=== PATIENT | male | born 1940 | race Two or more races ===

== ENCOUNTER 2024-01-21 12:24 | Emergency (ER) | payer OTHER ==
[~2024-01-21] VITALS: Ht 172.7 cm; Wt 61.9 kg
[2024-01-21 18:31] LABS: Basophils # (auto) 0 10 ^3/uL (0-0.2); Basophils % (auto) 0.3 % (0.0-2.0); Eosinophils # (auto) 0 10 ^3/uL (0-0.8); Eosinophils % (auto) 0.6 % (0.0-7.0); Hematocrit 41.5 % (41.0-53.0); Hemoglobin 13.9 g/dL (13.5-17.5); Lymphocytes # (auto) 1.2 10 ^3/uL (0.4-5.4); Lymphocytes % (auto) 18.7 % (10.0-50.0); Mean Corpuscular Hemoglobin 29.8 pg (28.0-32.0); Mean Corpuscular Hgb Conc. 33.6 g/dL (32.0-36.0); Mean Corpuscular Volume 88.7 fL (80.0-100.0); Monocytes # (auto) 0.5 10 ^3/uL (0-1.3); Monocytes % (auto) 8.2 % (0.0-12.0); Neutrophils # (auto) 4.8 10 ^3/uL (1.6-8.6); Neutrophils % (auto) 72.2 % (37.0-80.0); Nucleated Red Blood Cells % 0.2 %; Red Blood Cells 4.68 10^6/uL (4.5-5.90); Red Cell Distribution Width 13.5 % (11.8-14.3); White Blood Cell 6.6 10^3/uL (4.4-10.8)
[2024-01-21 18:43] LABS: Chloride 105 mmol/L (98-107); Potassium 3.7 mmol/L (3.5-5.1); Sodium 141 mmol/L (136-145)
[2024-01-21 18:44] LABS: Anion Gap 7 (5-15); Calcium 9.9 mg/dL (8.7-10.4); Carbon Dioxide 29 mmol/L (20-30)
[2024-01-21 18:49] LABS: BUN/Creatinine Ratio 21.8 (10.0-20.0); Blood Urea Nitrogen 17 mg/dL (9-23); Glucose 127 mg/dL (74-106); Magnesium 2.1 mg/dL (1.6-2.6)
[2024-01-21 20:18] LABS: Alanine Aminotransferase 20 U/L (7-40); Albumin 4.4 g/dL (3.2-4.8); Alkaline Phosphatase 101 U/L (46-116); Aspartate Aminotransferase 26 U/L (13-40); Bilirubin, Total 0.4 mg/dL (0.2-1.0); Total Protein 7.2 g/dL (5.7-8.2)
[2024-01-21 21:30] VITALS: BP 168/76; PULSE 70; RESP 18; TEMP 98; O2SAT 99
[2024-01-21] MEDS ORDERED: ACET500T58 PO (22:21)
== END 2024-01-21 22:40 | disposition home or self-care (01) ==
LOC: ER 12:24
DX: S20.212A Contusion of left front wall of thorax, initial encounter (principal); M54.2 Cervicalgia; W17.89XA Other fall from one level to another, initial encounter; Y93.89 Activity, other specified; Y92.89 Other specified places as the place of occurrence of the external cause; Y99.8 Other external cause status
CPT/HCPCS: 36415; 70450; 71046; 71101; 71250; 72125; 74176; 80053; 83735; 84484; 85025; 93005

== ENCOUNTER 2024-02-05 11:53 | Emergency (ER) | payer OTHER ==
[~2024-02-05] VITALS: Ht 170.2 cm; Wt 60.1 kg
[~2024-02-05 11:53] MED LIST: ACET500T58 PO
[2024-02-05] MEDS ORDERED: AMOX875T3 PO (13:13)
[2024-02-05] MEDS ORDERED: PROM1SOL4 PO (13:13)
[2024-02-05 13:29] VITALS: BP 131/62; PULSE 72; RESP 17; TEMP 98.5; O2SAT 99
== END 2024-02-05 13:31 | disposition home or self-care (01) ==
LOC: ER 11:53
DX: J01.00 Acute maxillary sinusitis, unspecified (principal)
CPT/HCPCS: 71046

== ENCOUNTER 2024-10-09 00:37 | Inpatient (IN) | payer MEDICAID, OTHER ==
[~2024-10-09] VITALS: Ht 172.7 cm; Wt 61.0 kg
[~2024-10-09 00:37] MED LIST changes: +AMOX875T3 PO; +LISI10TA34 PO; +PROM1SOL4 PO; +SIMV20TA20 PO; +TAMS0.4C39 PO
[2024-10-09] MEDS: ACETAMINOPHEN 325 MG TAB PO ONE (01:17)
--- NOTE | 2024-10-09 01:20 | ED.PDOC ---
SOB-HPI HPI Comments 84-year-old male who came to ER for shortness of breath. Patient states for the past few days he has been having productive cough with shortness of breath, especially during supine position. Noted also chest discomfort/pressure whenever he lays down. Patient also complaining of bilateral flank pains. Saturating 98% on room air. Patient denies any fever. Chief Complaint: Shortness of breath Time Seen by MD: 01:19 Reviewed notes: Nurses Notes Information Source: Patient Mode of Arrival: Ambulatory Severity: Moderate Timing: Days Duration: Intermittent Context: At Rest, With Light Exertion PE Risk Factors: None History of: None Prehospital treatment: None Associated Signs and Symptoms: Cough, Chest Pain Quality: Pressure Radiation: No Radiation If cough with SOB: Non-Productive Past Medical History PAST MEDICAL HISTORY: Denies Surgical History: Denies all surgeries Family History Family History: Reviewed,noncontributory to illness Social History Smoker: Non-Smoker Alcohol: Denies ETOH Use Drugs: Denies Drug Use Lives In: Home Constitutional: denies: chills, diaphoresis, fatigue, fever, malaise, sweats, weakness, others EENTM: denies: blurred vision, double vision, ear bleeding, ear discharge, ear drainage, ear pain, ear ringing, eye pain, eye redness, hearing loss, mouth pain, mouth swelling, nasal discharge, nose bleeding, nose congestion, nose lisha n, photophobia, tearing, throat pain, throat swelling, voice changes, others Respiratory: reports: orthopnea, SOB at rest, shortness of breath; denies: cough, hemoptysis, SOB with excertion, stridor, wheezing, others Cardiovascular: reports: chest pain, dizzy spells; denies: diaphoresis, Dyspnea on exertion, edema, irregular heart beat, left arm pain, lightheadedness, palpitations, PND, syncope, others Gastrointestinal: denies: abdomen distended, abdominal pain, blood streaked bowels, constipated, diarrhea, dysphagia, difficulty swallowing, hematemesis, melena, nausea, poor appetite, poor fluid intake, rectal bleeding, rectal pain, vomiting, others Genitourinary: reports: flank pain; denies: burning, dysuria, frequency, hematuria, incontinence, penile discharge, penile sore, pain, testicle pain, shanae ticle swelling, urgency, others Neurological: denies: dizziness, fainting, headache, left sided numbness, left sided weakness, numbness, paresthesia, pre-existing deficit, right sided numbness, right sided weakness, seizure, speech problems, tingling, tremors, weakness, others Musculoskeletal: denies: back pain, gout, joint pain, joint swelling, muscle pain, muscle stiffness, neck pain, others Integumetry: denies: bruises, change in color, change in hair/nails, dryness, laceration, lesions, lumps, rash, wounds, others Allergic/Immunocompromised: denies: Difficulty Healing, Frequent Infections, Hives, Itching, others Hematologic/Lymphatic: denies: anemia, blood clots, easy bleeding, easy bruising, swollen glands, others Endocrine: denies: excessive hunger, excessive sweating, excessive thirst, excessive urination, flushing, intolerance to cold, intolerance to heat, unexplained weight gain, unexplained weight loss, others Psychiatric: denies: anxiety, bipolar disorder, depression, hopeless, panic disorder, schizophrenia, sleepless, suicidal, others Physical Exam General Appearance: Moderate Distress ([id number] distress due to chest pain and flank pain concerns.), Normal HEENT: Normal ENT Inspection, Pharynx Normal, TMs Normal Neck: Full Range of Motion, Non-Tender, Normal, Normal Inspection Respiratory: Lungs Clear, No Accessory Muscle Use, No Respiratory Distress, Normal Breath Sounds Cardiovascular: No Edema, No JVD, No Murmur, No Gallop, Normal Peripheral Pulses, Regular Rate/Rhythm Breast Exam: Deferred Gastrointestinal: Other (Diffuse bilateral CVA tenderness to palpation with the right-sided greater than left. Patient states pain radiates towards the belly. No signs of trauma.) Genitalia: Deferred Pelvic: Deferred Rectal: Deferred Extremities: No calf tenderness, Normal inspection, Normal range of motion, Non-tender Musculoskeletal : Apperance: Normal Neurologic: Alert, Normal Affect, Normal Mood, No Sensory Deficits Cerebellar Function: NOT DONE Reflexes: NOT DONE Skin: Dry, Normal Color, Warm Lymphatic: No Adenopathy Was a procedure done? Was a procedure done?: No Differential Dx Differential Diagnosis: Anxiety, Asthma, Bronchitis, CHF, COPD, Myocardial infarction, Panic Attack, Pneumonia, Respiratory Distress X-Ray, Labs, Meds, VS Vital Signs Date Time Temp Pulse Resp B/P (MAP) Pulse Ox O2 Delivery O2 Flow Rate FiO2 10/09/24 03:04 98 10/09/24 01:37 97.7 98 16 129/72 (91) 98 Lab Test 10/09/24 02:21 10/09/24 01:18 Range/Units Troponin I High Sensitivity Pending 767 *H </=54 ng/L White Blood Count 5.3 4.4-10.8 10^3/uL Red Blood Count 4.19 L 4.5-5.90 10^6/uL Hemoglobin 13.0 L 13.5-17.5 g/dL Hematocrit 37.4 L 41.0-53.0 % Mean Corpuscular Volume 89.2 80.0-100.0 fL Mean Corpuscular Hemoglobin 31.0 28.0-32.0 pg Mean Corpuscular Hemoglobin Concent 34.8 32.0-36.0 g/dL Red Cell Distribution Width 13.7 11.8-14.3 % Platelet Count 145 140-450 10^3/uL Mean Platelet Volume 9.5 6.9-10.8 fL Neutrophils (%) (Auto) 64.8 37.0-80.0 % Lymphocytes (%) (Auto) 26.6 10.0-50.0 % Monocytes (%) (Auto) 7.3 0.0-12.0 % Eosinophils (%) (Auto) 1.0 0.0-7.0 % Basophils (%) (Auto) 0.3 0.0-2.0 % Neutrophils # (Auto) 3.4 1.6-8.6 10 ^3/uL Lymphocytes # (Auto) 1.4 0.4-5.4 10 ^3/uL Monocytes # (Auto) 0.4 0-1.3 10 ^3/uL Eosinophils # (Auto) 0.1 0-0.8 10 ^3/uL Basophils # (Auto) 0 0-0.2 10 ^3/uL Nucleated Red Blood Cells 0.1 % Sodium Level 134 L 136-145 mmol/L Potassium Level 4.4 3.5-5.1 mmol/L Chloride Level 101 98-107 mmol/L Carbon Dioxide Level 26 20-31 mmol/L Anion Gap 7 5-15 Blood Urea Nitrogen 19 9-23 mg/dL Creatinine 1.12 0.700-1.30 mg/dL Glomerular Filtration Rate Calc 65 >90 mL/min BUN/Creatinine Ratio 17.0 10.0-20.0 Serum Glucose 352 H 74-106 mg/dL Calcium Level 9.6 8.7-10.4 mg/dL Total Bilirubin 0.5 0.2-1.0 mg/dL Aspartate Amino Transferase (AST) 52 H 13-40 U/L Alanine Aminotransferase (ALT) 57 H 7-40 U/L Alkaline Phosphatase 122 H 46-116 U/L Total Protein 6.5 5.7-8.2 g/dL Albumin 4.2 3.2-4.8 g/dL X-Ray, Labs, Meds, VS Comment All studies performed in the ED were evaluated by me personally. Chest x-ray was pending at time of this note. EKG revealed a sinus rhythm with a rate of 98. [place] intraventricular conduction delay noted. TX interval 187 and QT interval of 338. No STEMI appreciated. Serum laboratories revealed a hyperglycemia, a significantly elevated troponin on 1st draw as well as a transaminitis. Patient will be admitted for acute coronary syndrome and receive a cardiac evaluation tomorrow. Additionally, patient's blood sugar will be managed well with the facility and patient may require a CT evaluation of the abdomen. Time of 1ST Reevaluation: 03:15 Reevaluation 1ST: Improved Consultation: PCP, Cardiology Patient Education/Counseling: Diagnosis, Treatment Family Education/Counseling: Diagnosis, Treatment, No Family Present Departure 1 Departure Time of Disposition: 03:16 Impression: Primary Impression: Acute coronary syndrome Additional Impressions: Elevated troponin Transaminitis Disposition: ADMITTED INPATIENT Condition: Stable Discharged With: Self Critical Care Note Critical Care Time?: No Stability Stability form required: No Heart Score Heart Score: Heart Score Response (Comments) Value History Slightly Suspicious 0 EKG Repolarization Disturb 1 Age >65 2 Risk Factors 1 or 2 risk factors 1 Troponin >3 x's Normal limit 2 Total 6 I personally scribed for SARAH LYNN PAC ([email or web address]) on 10/09/24 at 01:20. Electronically submitted by Juanpablo Pena ([email or web address]). I personally scribed for SARAH LYNN PAC ([email or web address]) on 10/09/24 at 02:03. Electronically submitted by Juanpablo Pena ([email or web address]). SARAH LYNN PAC Oct 09, 2024 01:20
[2024-10-09 01:45] LABS: Basophils # (auto) 0 10 ^3/uL (0-0.2); Basophils % (auto) 0.3 % (0.0-2.0); Eosinophils # (auto) 0.1 10 ^3/uL (0-0.8); Hematocrit 37.4 % (41.0-53.0); Lymphocytes # (auto) 1.4 10 ^3/uL (0.4-5.4); Lymphocytes % (auto) 26.6 % (10.0-50.0); Mean Corpuscular Hgb Conc. 34.8 g/dL (32.0-36.0); Mean Corpuscular Volume 89.2 fL (80.0-100.0); Monocytes # (auto) 0.4 10 ^3/uL (0-1.3); Monocytes % (auto) 7.3 % (0.0-12.0); Neutrophils # (auto) 3.4 10 ^3/uL (1.6-8.6); Neutrophils % (auto) 64.8 % (37.0-80.0); Nucleated Red Blood Cells % 0.1 %; Platelet Count (auto) 145 10^3/uL (140-450); Red Blood Cells 4.19 10^6/uL (4.5-5.90); Red Cell Distribution Width 13.7 % (11.8-14.3); White Blood Cell 5.3 10^3/uL (4.4-10.8)
[2024-10-09 02:02] LABS: Albumin 4.2 g/dL (3.2-4.8); Anion Gap 7 (5-15); Blood Urea Nitrogen 19 mg/dL (9-23); Calcium 9.6 mg/dL (8.7-10.4); Carbon Dioxide 26 mmol/L (20-31); Chloride 101 mmol/L (98-107); Potassium 4.4 mmol/L (3.5-5.1)
[2024-10-09 02:03] LABS: Bilirubin, Total 0.5 mg/dL (0.2-1.0); Total Protein 6.5 g/dL (5.7-8.2)
[2024-10-09 02:08] LABS: Alanine Aminotransferase 57 U/L (7-40); Alkaline Phosphatase 122 U/L (46-116); Aspartate Aminotransferase 52 U/L (13-40); Glucose 352 mg/dL (74-106); Sodium 134 mmol/L (136-145)
[2024-10-09 03:42] LABS: Urine Bacteria None Seen /hpf (None Seen)
[2024-10-09 03:56] LABS: Urine Blood Negative /uL (Negative); Urine Clarity Clear (Clear); Urine Color Light-Yellow (Yellow); Urine Protein, UAD TRACE (Negative); Urine Specific Gravity 1.028 (1.001-1.035); Urine Urobilinogen Normal (Negative); Urine pH 5.5 (5.0-9.0)
[2024-10-09 03:57] LABS: Urine Squamous Epithelial Cell None Seen /hpf (<5); Urine WBC < 1 /HPF (0-3)
--- NOTE | 2024-10-09 04:04 | DVH ---
Examination: CXRP CLINICAL INDICATION: Shortness of breath. COMPARISON: None. TECHNIQUE: Frontal view of chest radiograph FINDINGS: Prominence of bentley and interstitial markings is seen in both lungs, showing basal predominance. Patchy areas of consolidation are seen in the right paracardiac lower zone. Rest of the lung parenchyma is clear. Hilar and mediastinal shadows show no obvious abnormality. Costophrenic angles clear. Aorta is noted. Calcification of aortic knob is present. Cardiac shadow size is within normal limits. IMPRESSION: 1. Prominence of bentley and interstitial markings is seen in both lungs, showing basal predominance. T his is probably suggestive of interstitial pulmonary edema. 2. Patchy areas of consolidation are seen in the right paracardiac lower zone. Electronically Signed 10/09/2024 04:02 Austin Gibbs
[2024-10-09] MEDS: SODIUM CHLORIDE 0.9% 1,000 ML IV ONE (04:27)
[2024-10-09] MEDS: INSULIN LISPRO (HUMAN) 100 UNITS/ML ML SC ONE (04:44)
[2024-10-09] MEDS ORDERED: ACETAMINOPHEN 325 MG TAB PO PRN (07:00)
[2024-10-09] MEDS ORDERED: MORPHINE SULFATE INJ 2 MG/ml SYRG IV PRN (07:00)
[2024-10-09] MEDS ORDERED: DEXTROSE (50%) 50ML SYRG IV PRN (07:00)
[2024-10-09] MEDS ORDERED: MORPHINE SULFATE 4 MG/ML SYR/VIAL IV PRN (07:00)
[2024-10-09] MEDS ORDERED: ONDANSETRON HCL 4 MG/2 ML VIAL IV PRN (07:00)
[2024-10-09] MEDS ORDERED: NITROGLYCERIN 0.4 MG SL TAB SL PRN ×2 (07:00)
--- NOTE | 2024-10-09 07:26 | DVHHP2 ---
History of Present Illness Reason for Visit: SOB History of Present Illness Jonathan Campos is an 84-year-old male with past medical history of hypertension, diabetes, and appendectomy who presents to the ED for SOB, cough, and bilateral flank pain x1 day. Patient reports that he is not taking any current medications nor does he see a research assistant. Patient stated that he had some chest pain but not currently upon examination. Denies any recent illnesses, recent sick contacts, recent travels, abdominal pain, nausea, vomiting, diarrhea, fever, chills, lightheadedness, and dizziness. Cardiovascular: HTN Endocrine: Diabetes Past Surgical History: Appendectomy Family History: Other (Both ) Smoke: No ALCOHOL: none Drugs: None Lives: Alone Domestic Violence: Neg Review of Systems Constitutional: No: Fever, Chills, Sweats, Weakness, Malaise, Other Eyes: No: Pain, Vision change, Conjunctivae inflammation, Eyelid inflammation, Other, Redness ENT: No: Ear pain, Ear discharge, Nose pain, Nose discharge, Nose congestion, Mouth pain, Mouth swelling, Throat pain, Throat swelling, Other Respiratory: Cough, Shortness of breath; No: Dry, SOB with excertion, Wheezing, Hemoptysis, Pleuritic Pain, Sputum, Wheezing, Other Cardiovascular: No: Chest Pain, Palpitations, Orthopnea, Paroxysmal Noc. Dyspnea, Edema, Lt Headedness, Other Gastrointestinal: Other (Bilateral flank pain); No: Nausea, Vomiting, Abdominal Pain, Diarrhea, Constipation, Melena, Hematochezia Genitourinary: No Dysuria, No Frequency, No Incontinence, No Hematuria, No Retention, No Other Musculoskeletal: No: other, neck pain, shoulder pain, arm pain, back pain, hand pain, leg pain, foot pain Skin: No: Rash, Lesions, Jaundice, Bruising, Other Neurological: No: Weakness, Numbness, Incoordination, Change in speech, Confusion, Seizures, Other Allergies: Coded Allergies: NO KNOWN ALLERGIES (Unverified , 01/21/24) Medications Current Medications Medications Dose Ordered Sig/[place] Route Start Time Stop Time Status Last Admin Dose Admin Furosemide 40 mg BIDD IV 10/09/24 18:00 UNV Diagnostic Test (Pha) 1 strip ACHS 10/09/24 07:00 UNV Insulin Human Regular ACHS SC 10/09/24 07:00 UNV Dextrose 50 ml UD PRN IV 10/09/24 07:00 UNV Aspirin 81 mg DAILY PO 10/09/24 10:00 UNV Atorvastatin Calcium 40 mg HS PO 10/09/24 22:00 UNV Morphine Sulfate 2 mg Q30MP PRN IV 10/09/24 07:00 UNV Acetaminophen 650 mg Q6HP PRN PO 10/09/24 07:00 UNV Nitroglycerin 0.4 mg Q5MINP PRN SL 10/09/24 07:00 UNV Ondansetron HCl 4 mg Q4HP PRN IV 10/09/24 07:00 UNV Nitroglycerin 0.4 mg Q5MINP PRN SL 10/09/24 07:00 UNV Morphine Sulfate 2 mg Q30M PRN IV 10/09/24 07:00 UNV Exam Vital Signs Vital Signs Date Time Temp Pulse Resp B/P (MAP) Pulse Ox O2 Delivery O2 Flow Rate FiO2 10/09/24 06:01 97.9 94 129/65 (86) 100 97.9 10/09/24 01:37 16 General Appearance: Alert, Oriented X3, Cooperative, No acute distress HEENT: Atraumatic, PERRLA, EOMI, Mucous membr. moist/pink Respiratory: Normal air movement Cardiovascular: Regular rate, Normal S1, Normal S2, No murmurs Abdominal: Normal bowel sounds, Soft Extremities: No clubbing, No cyanosis, No edema, Normal pulses, No tenderness/swelling Skin: No rashes, No breakdown, No significant lesion Neuro: Normal gait, Normal speech, Strength at 5/5 X4 ext, Normal tone, Sensation intact Psych/Mental Status: Mental status NL, Mood NL Labs/Xrays Labs Test 10/09/24 04:00 10/09/24 03:41 10/09/24 01:18 Range/Units Troponin I High Sensitivity 735 *H </=54 ng/L Urine Color Light-yellow Yellow Urine Clarity Clear Clear Urine pH 5.5 5.0-9.0 Urine Specific [place] 1.028 1.001-1.035 Urine Protein Trace H Negative Urine Ketones Trace Negative Urine Blood Negative Negative /uL Urine Nitrite Negative Negative Urine Bilirubin Negative Negative Urine Urobilinogen Normal Negative mg/dL Urine Leukocyte Esterase Negative Negative /uL Urine RBC <1 0 - 3 /hpf Urine Microscopic WBC < 1 0-3 /HPF Urine Squamous Epithelial Cells None seen <5 /hpf Urine Bacteria None seen None Seen /hpf Urine Glucose 4+ H Normal mg/dL White Blood Count 5.3 4.4-10.8 10^3/uL Red Blood Count 4.19 L 4.5-5.90 10^6/uL Hemoglobin 13.0 L 13.5-17.5 g/dL Hematocrit 37.4 L 41.0-53.0 % Mean Corpuscular Volume 89.2 80.0-100.0 fL Mean Corpuscular Hemoglobin 31.0 28.0-32.0 pg Mean Corpuscular Hemoglobin Concent 34.8 32.0-36.0 g/dL Red Cell Distribution Width 13.7 11.8-14.3 % Platelet Count 145 140-450 10^3/uL Mean Platelet Volume 9.5 6.9-10.8 fL Neutrophils (%) (Auto) 64.8 37.0-80.0 % Lymphocytes (%) (Auto) 26.6 10.0-50.0 % Monocytes (%) (Auto) 7.3 0.0-12.0 % Eosinophils (%) (Auto) 1.0 0.0-7.0 % Basophils (%) (Auto) 0.3 0.0-2.0 % Neutrophils # (Auto) 3.4 1.6-8.6 10 ^3/uL Lymphocytes # (Auto) 1.4 0.4-5.4 10 ^3/uL Monocytes # (Auto) 0.4 0-1.3 10 ^3/uL Eosinophils # (Auto) 0.1 0-0.8 10 ^3/uL Basophils # (Auto) 0 0-0.2 10 ^3/uL Nucleated Red Blood Cells 0.1 % Sodium Level 134 L 136-145 mmol/L Potassium Level 4.4 3.5-5.1 mmol/L Chloride Level 101 98-107 mmol/L Carbon Dioxide Level 26 20-31 mmol/L Anion Gap 7 5-15 Blood Urea Nitrogen 19 9-23 mg/dL Creatinine 1.12 0.700-1.30 mg/dL Glomerular Filtration Rate Calc 65 >90 mL/min BUN/Creatinine Ratio 17.0 10.0-20.0 Serum Glucose 352 H 74-106 mg/dL Calcium Level 9.6 8.7-10.4 mg/dL Total Bilirubin 0.5 0.2-1.0 mg/dL Aspartate Amino Transferase (AST) 52 H 13-40 U/L Alanine Aminotransferase (ALT) 57 H 7-40 U/L Alkaline Phosphatase 122 H 46-116 U/L B-Type Natriuretic Peptide 810.87 0-100 pg/mL Total Protein 6.5 5.7-8.2 g/dL Albumin 4.2 3.2-4.8 g/dL Examination: CXRP CLINICAL INDICATION: Shortness of breath. COMPARISON: None. TECHNIQUE: Frontal view of chest radiograph FINDINGS: Prominence of bentley and interstitial markings is seen in both lungs, showing basal predominance. Patchy areas of consolidation are seen in the right paracardiac lower zone. Rest of the lung parenchyma is clear. Hilar and mediastinal shadows show no obvious abnormality. Costophrenic angles clear. Aorta is noted. Calcification of aortic knob is present. Cardiac shadow size is within normal limits. IMPRESSION: 1. Prominence of bentley and interstitial markings is seen in both lungs, showing basal predominance. This is probably suggestive of interstitial pulmonary edema. 2. Patchy areas of consolidation are seen in the right paracardiac lower zone. Assessment/Plan Assessment/Plan Assessment/Plan: Dyspnea Pulmonary edema Transaminitis Glucosuria Hyponatremia Thrombocytopenia Diuretics Elevated troponins Insulin given ED NS 1 L given ED Antipyretics BNP noted Chest x-ray UA EKG Trend troponins Echo ordered TSH Lipid panel UDS ACS protocol Cardiology consult GI consult A.m. labs Antiemetics Pain management Diabetes type 2 uncontrolled Hemoglobin A1c ISS and Accu-Cheks Chronic hypertension Continue home medications FEN/PPX Diet Hep-Lock DVT prophylaxis not indicated patient ambulating PUD prophylaxis not indicated no history of GERD or GI bleed Admit to telemetry Home medications reconciled Discussed plan of care with patient and nurse Plan discussed with: Patient My Orders Orders - DANIAL MORAN INSE[employer] INSPECTOR Procedure Category Date Status Time Furosemide Injection PHA 10/09/24 Logged (Lasix Injection) 18:00 Echo 2d Mode Cardiac US 10/09/24 Logged DOP 06:51 Thyroid Stimulating LAB 10/09/24 Logged Hormone 06:51 Lipid Panel LAB 10/09/24 Logged 06:51 Drug Screen LAB 10/09/24 Logged 06:51 Glucose Blood PHA 10/09/24 Logged (Accu-Chek Comfort 07:00 Insulin R (Human) PHA 10/09/24 Logged (Insulin R) 07:00 Dextrose 50% Syringe PHA 10/09/24 Logged 07:00 Admit ADMIT 10/09/24 Transmitted 06:51 Code Status CODE 10/09/24 Transmitted 06:51 Vital Signs ERI 10/09/24 In Process 06:51 Attendant Lodging Facilities ERI 10/09/24 In Process 06:51 Cardiac DIET 10/09/24 Transmitted Diet-2gna,Lofat,Lochol Breakfast Aspirin Tablet PHA 10/09/24 Transmitted 10:00 Lipitor 40mg Hs PHA 10/09/24 Transmitted Hi-Intensity 22:00 Morphine Sulfate PHA 10/09/24 Transmitted Injection 07:00 Acetaminophen Tablet PHA 10/09/24 Transmitted (Tylenol Tablet) 07:00 Complete Blood Count LAB 10/10/24 Verified 04:00 Comprehensive LAB 10/10/24 Verified Metabolic Panel 04:00 Magnesium LAB 10/10/24 Verified 04:00 Nitroglycerin PHA 10/09/24 Transmitted Sublingual (Ntrostat 07:00 Ondansetron Hcl PHA 10/09/24 Transmitted (Zofran) 07:00 Electrocardigram EKG 10/10/24 Logged 04:00 Troponin-I Hs LAB 10/09/24 Logged 06:51 Cardiac ERI 10/09/24 In Process Rehabilitation - Outpa Nitroglycerin PHA 10/09/24 Transmitted Sublingual (Ntrostat 07:00 Morphine Sulfate PHA 10/09/24 Transmitted Injection 07:00 Stat Ekg For Chest ERI 10/09/24 In Process Pain 06:51 Notify Of Changes [facility] 10/09/24 In Process From Base 06:51 Housekeeper And Laundry Assistant For ERI 10/09/24 In Process 24 Hours 06:51 Emergency Dysrhythmia ERI 10/09/24 In Process Protocol 06:51 Rhythm Strips Once ERI 10/09/24 In Process Every Shift 06:51 Oxygen By Nasal RT 10/09/24 Transmitted Cannula 06:51 Hemoglobin A1c LAB 10/09/24 Transmitted 07:22 Date of Service: Oct 09, 2024 Billing Provider: DANIAL MORAN Common Visit Codes: [id number] INP/OBS CARE (HIGH) DANIAL MORAN Oct 09, 2024 07:26
[2024-10-09 08:03] LABS: Triglycerides 79 mg/dL (< 150)
[2024-10-09 08:04] LABS: LDL Cholesterol 51 mg/dL (< 100)
[2024-10-09 08:05] LABS: Cholesterol 126 mg/dL (< 200)
[2024-10-09 08:08] LABS: HDL Cholesterol 61 mg/dL (40-59)
[2024-10-09 08:14] LABS: Phencyclidine Screen, Urine Neg (NEGATIVE)
[2024-10-09 08:16] LABS: Amphetamine Screen, Urine Neg (NEGATIVE); Barbiturate Scree,Urine Neg (NEGATIVE); Benzodiazephine Screen, Urine Neg (NEGATIVE); Cannabinoid Screen, Urine Neg (NEGATIVE); Cocaine Screen, Urine Neg (NEGATIVE); Opiate Scree,Urine Neg (NEGATIVE)
[2024-10-09] MEDS: ACCU-CHEK COMFORT CURVE STRIP VI SCH (08:22)
[2024-10-09] MEDS: InsuLIN REG 1unit/0.01ml Soln (100units/ml) SC SCH (08:26)
[2024-10-09] MEDS: ASPirin 81 mg TAB PO SCH (10:21)
--- NOTE | 2024-10-09 12:20 | DVHINCON2 ---
Date Seen: Oct 09, 2024 Referring Physician Lillian Reason for Consultation NSTEMI History of Present Illness 84-year-old male with PMH for diabetes and HTN presents to the hospital with shortness of breath. Patient has been having shortness of breath worsens with exertion for the last week. Denies any chest pain, palpitations, diaphoresis. Upon evaluation in the ER patient noted to have CXR showing patchy area of co nsolidation in the right suggestive of pneumonia versus pulmonary edema. BNP 810. Troponins trending 767, 775, 735. Blood glucose 352, A1c 9.7. EKG reviewed and shows normal sinus rhythm at 90 beats per minute, lateral ST abnormality. Past Medical History Diabetes HTN Past Surgical History Denies previous cardiac surgeries Family History Denies pertinent family cardiac history Social History Denies alcohol, tobacco, or illicit drug use Allergies: Coded Allergies: NO KNOWN ALLERGIES (Unverified , 01/21/24) Home Meds Active Scripts Promethazine-Dm (Promethazine Dm 6.25-15 mg/5Ml) 1 Anneliese Anneliese, 5 ML PO TID, #180 ML Prov:JOLANTA ALBARRAN 02/05/24 Amoxicillin Trihydrate (Amoxicillin) 875 Mg Tab, 1 TAB PO BID, #20 TAB Prov:JOLANTA ALBARRAN 02/05/24 Acetaminophen (Acetaminophen) 500 Mg Tab, 500 MG PO QIDPRN for 10 Days, #40 TAB Prov:MELINA FORTE DO 01/21/24 Reported Medications Simvastatin (Simvastatin) 20 Mg Tab, 1 TAB PO 10/09/24 Insulin Isophane & Reg (Human) (Humulin 70/30 (70-30) 100 Unit/ml) 1 Units/0.01 Ml Inj, 15 UNITS SC BID, INJ 10/09/24 Current Medications Current Medications Medications (Trade) Dose Ordered Sig/Rosa Route PRN Reason Start Time Stop Time Status Last Admin Furosemide (Lasix Injection) 40 mg BIDD IV 10/09/24 18:00 Diagnostic Test (Pha) (Accu-Chek Comfort Curve T) 1 strip ACHS 10/09/24 07:00 10/09/24 08:22 Insulin Human Regular (InsuLIN R) ACHS SC 10/09/24 07:00 10/09/24 08:26 Dextrose 50 ml UD PRN IV Blood Sugar LESS THAN 60 10/09/24 07:00 Aspirin 81 mg DAILY PO 10/09/24 10:00 10/09/24 10:21 Atorvastatin Calcium (Lipitor) 40 mg HS PO 10/09/24 22:00 Morphine Sulfate 2 mg Q30MP PRN IV FOR CHEST PAIN 10/09/24 07:00 Acetaminophen (Tylenol Tablet) 650 mg Q6HP PRN PO MILD PAIN (1-3 PAIN SCALE) 10/09/24 07:00 Nitroglycerin (Ntrostat Sublingual) 0.4 mg Q5MINP PRN SL FOR CHEST PAIN 10/09/24 07:00 Ondansetron HCl (Zofran) 4 mg Q4HP PRN IV NAUSEA / VOMITING 10/09/24 07:00 Nitroglycerin (Ntrostat Sublingual) 0.4 mg Q5MINP PRN SL FOR CHEST PAIN 10/09/24 07:00 10/09/24 07:28 DC Morphine Sulfate 2 mg Q30M PRN IV FOR CHEST PAIN 10/09/24 07:00 10/09/24 07:28 DC Review of Systems Constitutional: No: Fever, Chills, Sweats, Weakness, Malaise, Other Eyes: No: Pain, Vision change, Conjunctivae inflammation, Eyelid inflammation, Other, Redness ENT: No: Ear pain, Ear discharge, Nose pain, Nose discharge, Nose congestion, Mouth pain, Mouth swelling, Throat pain, Throat swelling, Other Respiratory: No: Cough, Dry, , Wheezing, Hemoptysis, Pleuritic Pain, Sputum, Wheezing, Other positive: Shortness of breath, SOB with exertion Cardiovascular: ; No: Chest Pain Palpitations, Orthopnea, Paroxysmal Noc. Dyspnea, Edema, Lt Headedness, Other Gastrointestinal: No: Nausea, Vomiting, Abdominal Pain, Diarrhea, Constipation, Melena, Hematochezia, Other Genitourinary: No Dysuria, No Frequency, No Incontinence, No Hematuria, No Retention, No Other Musculoskeletal: neck pain; No: other, shoulder pain, arm pain, back pain, hand pain, leg pain, foot pain Skin: No: Rash, Lesions, Jaundice, Bruising, Other Neurological: Other (Dizziness, headache.); No: Weakness, Numbness, Incoordination, Change in speech, Confusion, Seizures Vital Signs Vital Signs Date Time Temp Pulse Resp B/P (MAP) Pulse Ox O2 Delivery O2 Flow Rate FiO2 10/09/24 10:27 98.1 89 16 133/69 (90) 98 98.1 10/09/24 08:27 Room Air Physical Exam General appearance: Patient is well-developed, well-nourished, in no acute distress. HEENT: Exam shows: Normocephalic, atraumatic, PERRLA, EOMI Neck: Supple, no bruits Chest: Equal chest excursion bilaterally. Breath sounds crackles/diminished. Heart: Rhythm: Regular rate; no murmur or gallop Abdomen: Exam shows: Soft, nontender, nondistended Musculoskeletal: No clubbing, no cyanosis, no lower extremity edema Dermatology: Skin warm, moist. Neurological: Exam shows: Alert and oriented x4, normal speech Available prior records, labs, EKG, rhythm strips reviewed and interpreted Labs/Diagnostic Data Labs Test 10/09/24 04:00 10/09/24 03:41 10/09/24 02:21 10/09/24 01:18 Range/Units Troponin I High Sensitivity 735 *H </=54 ng/L Triglycerides Level 79 < 150 mg/dL Cholesterol Level 126 < 200 mg/dL LDL Cholesterol 51 < 100 mg/dL HDL Cholesterol 61 H 40-59 mg/dL Urine Color Light-yellow Yellow Urine Clarity Clear Clear Urine pH 5.5 5.0-9.0 Urine Specific [place] 1.028 1.001-1.035 Urine Protein Trace H Negative Urine Ketones Trace Negative Urine Blood Negative Negative /uL Urine Nitrite Negative Negative Urine Bilirubin Negative Negative Urine Urobilinogen Normal Negative mg/dL Urine Leukocyte Esterase Negative Negative /uL Urine RBC <1 0 - 3 /hpf Urine Microscopic WBC < 1 0-3 /HPF Urine Squamous Epithelial Cells None seen <5 /hpf Urine Bacteria None seen None Seen /hpf Urine Glucose 4+ H Normal mg/dL Urine Opiates Screen Neg NEGATIVE Urine Fentanyl Screen Neg NEGATIVE Urine Barbiturates Screen Neg NEGATIVE Urine Phencyclidine Screen Neg NEGATIVE Urine Amphetamines Screen Neg NEGATIVE Urine Benzodiazepines Screen Neg NEGATIVE Urine Cocaine Screen Neg NEGATIVE Urine Cannabinoids Screen Neg NEGATIVE Thyroid Stimulating Hormone (TSH) 1.49 0.55-4.78 uIU/mL White Blood Count 5.3 4.4-10.8 10^3/uL Red Blood Count 4.19 L 4.5-5.90 10^6/uL Hemoglobin 13.0 L 13.5-17.5 g/dL Hematocrit 37.4 L 41.0-53.0 % Mean Corpuscular Volume 89.2 80.0-100.0 fL Mean Corpuscular Hemoglobin 31.0 28.0-32.0 pg Mean Corpuscular Hemoglobin Concent 34.8 32.0-36.0 g/dL Red Cell Distribution Width 13.7 11.8-14.3 % Platelet Count 145 140-450 10^3/uL Mean Platelet Volume 9.5 6.9-10.8 fL Neutrophils (%) (Auto) 64.8 37.0-80.0 % Lymphocytes (%) (Auto) 26.6 10.0-50.0 % Monocytes (%) (Auto) 7.3 0.0-12.0 % Eosinophils (%) (Auto) 1.0 0.0-7.0 % Basophils (%) (Auto) 0.3 0.0-2.0 % Neutrophils # (Auto) 3.4 1.6-8.6 10 ^3/uL Lymphocytes # (Auto) 1.4 0.4-5.4 10 ^3/uL Monocytes # (Auto) 0.4 0-1.3 10 ^3/uL Eosinophils # (Auto) 0.1 0-0.8 10 ^3/uL Basophils # (Auto) 0 0-0.2 10 ^3/uL Nucleated Red Blood Cells 0.1 % Sodium Level 134 L 136-145 mmol/L Potassium Level 4.4 3.5-5.1 mmol/L Chloride Level 101 98-107 mmol/L Carbon Dioxide Level 26 20-31 mmol/L Anion Gap 7 5-15 Blood Urea Nitrogen 19 9-23 mg/dL Creatinine 1.12 0.700-1.30 mg/dL Glomerular Filtration Rate Calc 65 >90 mL/min BUN/Creatinine Ratio 17.0 10.0-20.0 Serum Glucose 352 H 74-106 mg/dL Hemoglobin A1c 9.7 H <5.7 % A1C Calcium Level 9.6 8.7-10.4 mg/dL Total Bilirubin 0.5 0.2-1.0 mg/dL Aspartate Amino Transferase (AST) 52 H 13-40 U/L Alanine Aminotransferase (ALT) 57 H 7-40 U/L Alkaline Phosphatase 122 H 46-116 U/L B-Type Natriuretic Peptide 810.87 0-100 pg/mL Total Protein 6.5 5.7-8.2 g/dL Albumin 4.2 3.2-4.8 g/dL Assessment NSTEMI Acute CHF Pneumonia HTN Uncontrolled diabetes Plan/Recommendation * NSTEMI - likely type 2. Denies chest pain. EKG with lateral ST abnormalities. Follow up echo. Continue on aspirin and statin. Plan for coronary angiogram Friday10/11/2024. * Acute CHF - elevated BNP. CXR with pulmonary edema. Diuresis with Lasix 40 mg IV twice daily. * Uncontrolled diabetes - A1c 9.7. On insulin sliding scale. Management per primary team. * HTN - continue trending Case Discussed with Dr Valero. Continue aspirin and statin. Patient will need ischemic workup stress test versus angiogram. Follow up echo. Critical care, time spent: 40 minutes This medical document was created using an electronic medical record system with voice recognition software and computerized dictation system. Although this document has been carefully reviewed, there might still be some phonetic and typographical errors. Occasional wrong-word or ``sound-alike substitutions may have occurred due to the inherent limitations of voice recognition software. These areas are purely typographical due to imperfections of the software programs and do not reflect any compromise in the patient's medical care. Please read the chart carefully and recognize, using context, where these substitutions have occurred. Thank you for allowing me to participate in the management of this patient. The treatment plan was discussed with and agreed upon by patient/family including requesting consultants and ordering of imaging/procedures. Plan discussed with: Patient NYHA 2 Physical activity limitations: Class3(Marked) ordinary Date of Service: Oct 09, 2024 Billing Provider: DUSTIN FLANAGAN Cardiology Common Codes: [id number] INP/OBS CARE (High), [id number] CARE 30-74 MIN DUSTIN FLANAGAN Oct 09, 2024 12:20
[2024-10-09 12:23] VITALS: PULSE 71; RESP 20; O2SAT 95
[2024-10-09 13:24] VITALS: PULSE 88; RESP 18; O2SAT 96
[2024-10-09] MEDS ORDERED: INS7030I SC (13:59)
[2024-10-09 14:07] VITALS: BP 136/85; PULSE 88; RESP 16; TEMP 97.9; O2SAT 96
--- NOTE | 2024-10-09 14:53 | DVH ---
INDICATION: TRANSMINITIS TECHNIQUE: Multiple real-time sonographic images of the abdomen were obtained. COMPARISON: None FINDINGS: Hepatic parenchyma is slightly echogenic The liver measures 2.9 cm in length cm. No intrah epatic biliary ductal dilatation is noted. The gallbladder wall measures 0.15 cm and is unremarkable. No gallstones or sludge is seen. The co mmon duct visible The right kidney measures 10.2 cm. No hydronephrosis. The pancreas is not well visualized due to obscuration from bowel gas. The visualized portions of the IVC and aorta are grossly unremarkable. IMPRESSION: 1. Gallbladder is negative 2. Liver measures 12.9 cm. 3. Bilateral pleural effusions.
--- NOTE | 2024-10-09 16:01 | DVHCONRES ---
Date Seen: Oct 09, 2024 Resident Creating Document: WERNER DELGADO RESIDENT History of Present Illness 84-year-old Fijian speaking male patient with PMH HX of hypertension presented to the ER with a chief complaint of shortness of breath and lower extremity edema. GI was consulted for transaminitis, patient denies nausea/vomiting/abdominal pain/constipation/diarrhea at this time. Patient seen and examined at the bedside. Exam is unremarkable, liver enzymes could be cardiac in origin. Family History: Diabetes mellitus G8 MOTHER Allergies: Coded Allergies: NO KNOWN ALLERGIES (Unverified , 01/21/24) Home Meds Active Scripts Promethazine-Dm (Promethazine Dm 6.25-15 mg/5Ml) 1 Anneliese Anneliese, 5 ML PO TID, #180 ML Prov:JOLANTA ALBARRAN 02/05/24 Amoxicillin Trihydrate (Amoxicillin) 875 Mg Tab, 1 TAB PO BID, #20 TAB Prov:JOLANTA ALBARRAN 02/05/24 Acetaminophen (Acetaminophen) 500 Mg Tab, 500 MG PO QIDPRN for 10 Days, #40 TAB Prov:MELINA FORTE DO 01/21/24 Reported Medications Simvastatin (Simvastatin) 20 Mg Tab, 1 TAB PO 10/09/24 Insulin Isophane & Reg (Human) (Humulin 70/30 (70-30) 100 Unit/ml) 1 Units/0.01 Ml Inj, 15 UNITS SC BID, INJ 10/09/24 Current Medications Current Medications Medications (Trade) Dose Ordered Sig/Rosa Route PRN Reason Start Time Stop Time Status Last Admin Furosemide (Lasix Injection) 40 mg BIDD IV 10/09/24 18:00 Diagnostic Test (Pha) (Accu-Chek Comfort Curve T) 1 strip ACHS 10/09/24 07:00 10/09/24 12:26 Insulin Human Regular (InsuLIN R) ACHS SC 10/09/24 07:00 10/09/24 08:26 Dextrose 50 ml UD PRN IV Blood Sugar LESS THAN 60 10/09/24 07:00 Aspirin 81 mg DAILY PO 10/09/24 10:00 10/09/24 10:21 Atorvastatin Calcium (Lipitor) 40 mg HS PO 10/09/24 22:00 Morphine Sulfate 2 mg Q30MP PRN IV FOR CHEST PAIN 10/09/24 07:00 Acetaminophen (Tylenol Tablet) 650 mg Q6HP PRN PO MILD PAIN (1-3 PAIN SCALE) 10/09/24 07:00 Nitroglycerin (Ntrostat Sublingual) 0.4 mg Q5MINP PRN SL FOR CHEST PAIN 10/09/24 07:00 Ondansetron HCl (Zofran) 4 mg Q4HP PRN IV NAUSEA / VOMITING 10/09/24 07:00 Nitroglycerin (Ntrostat Sublingual) 0.4 mg Q5MINP PRN SL FOR CHEST PAIN 10/09/24 07:00 10/09/24 07:28 DC Morphine Sulfate 2 mg Q30M PRN IV FOR CHEST PAIN 10/09/24 07:00 10/09/24 07:28 DC Vital Signs Vital Signs Date Time Temp Pulse Resp B/P (MAP) Pulse Ox O2 Delivery O2 Flow Rate FiO2 10/09/24 14:07 97.9 88 16 136/85 (102) 96 97.9 10/09/24 13:24 Room Air* 0 21 Physical Exam Patient lying in bed, in no acute distress General: Well-built, afebrile, palor, mucosae are moist Cardiovascular: Regular S1 and S2. No murmurs, gallops or rubs. No JVD elevation. No pedal edema Respiratory: Normal B/L air entry on room air. Clear lung sounds on auscultation Abdomen: Soft, nontender, nondistended, normoactive bowel sounds, no rebound tenderness, no organomegaly, no masses Genitourinary: Deferred MSK/skin: Mobilizes 4 limbs. Skin is dry and warm Neurological: No motor, no sensitive deficits, normal speech. Pupils are isocoric and reactive. Psych/Mental Status: A/Ox3 Labs/Diagnostic Data Labs Test 10/09/24 13:12 10/09/24 12:23 10/09/24 04:00 10/09/24 03:41 Range/Units Plasma/Serum Blood Alcohol < 3.0 <10 mg/dL POC Glucose 93 70-106 mg/dl Troponin I High Sensitivity 735 *H </=54 ng/L Triglycerides Level 79 < 150 mg/dL Cholesterol Level 126 < 200 mg/dL LDL Cholesterol 51 < 100 mg/dL HDL Cholesterol 61 H 40-59 mg/dL Urine Color Light-yellow Yellow Urine Clarity Clear Clear Urine pH 5.5 5.0-9.0 Urine Specific [place] 1.028 1.001-1.035 Urine Protein Trace H Negative Urine Ketones Trace Negative Urine Blood Negative Negative /uL Urine Nitrite Negative Negative Urine Bilirubin Negative Negative Urine Urobilinogen Normal Negative mg/dL Urine Leukocyte Esterase Negative Negative /uL Urine RBC <1 0 - 3 /hpf Urine Microscopic WBC < 1 0-3 /HPF Urine Squamous Epithelial Cells None seen <5 /hpf Urine Bacteria None seen None Seen /hpf Urine Glucose 4+ H Normal mg/dL Urine Opiates Screen Neg NEGATIVE Urine Fentanyl Screen Neg NEGATIVE Urine Barbiturates Screen Neg NEGATIVE Urine Phencyclidine Screen Neg NEGATIVE Urine Amphetamines Screen Neg NEGATIVE Urine Benzodiazepines Screen Neg NEGATIVE Urine Cocaine Screen Neg NEGATIVE Urine Cannabinoids Screen Neg NEGATIVE Test 10/09/24 02:21 10/09/24 01:18 Range/Units Thyroid Stimulating Hormone (TSH) 1.49 0.55-4.78 uIU/mL White Blood Count 5.3 4.4-10.8 10^3/uL Red Blood Count 4.19 L 4.5-5.90 10^6/uL Hemoglobin 13.0 L 13.5-17.5 g/dL Hematocrit 37.4 L 41.0-53.0 % Mean Corpuscular Volume 89.2 80.0-100.0 fL Mean Corpuscular Hemoglobin 31.0 28.0-32.0 pg Mean Corpuscular Hemoglobin Concent 34.8 32.0-36.0 g/dL Red Cell Distribution Width 13.7 11.8-14.3 % Platelet Count 145 140-450 10^3/uL Mean Platelet Volume 9.5 6.9-10.8 fL Neutrophils (%) (Auto) 64.8 37.0-80.0 % Lymphocytes (%) (Auto) 26.6 10.0-50.0 % Monocytes (%) (Auto) 7.3 0.0-12.0 % Eosinophils (%) (Auto) 1.0 0.0-7.0 % Basophils (%) (Auto) 0.3 0.0-2.0 % Neutrophils # (Auto) 3.4 1.6-8.6 10 ^3/uL Lymphocytes # (Auto) 1.4 0.4-5.4 10 ^3/uL Monocytes # (Auto) 0.4 0-1.3 10 ^3/uL Eosinophils # (Auto) 0.1 0-0.8 10 ^3/uL Basophils # (Auto) 0 0-0.2 10 ^3/uL Nucleated Red Blood Cells 0.1 % Sodium Level 134 L 136-145 mmol/L Potassium Level 4.4 3.5-5.1 mmol/L Chloride Level 101 98-107 mmol/L Carbon Dioxide Level 26 20-31 mmol/L Anion Gap 7 5-15 Blood Urea Nitrogen 19 9-23 mg/dL Creatinine 1.12 0.700-1.30 mg/dL Glomerular Filtration Rate Calc 65 >90 mL/min BUN/Creatinine Ratio 17.0 10.0-20.0 Serum Glucose 352 H 74-106 mg/dL Hemoglobin A1c 9.7 H <5.7 % A1C Calcium Level 9.6 8.7-10.4 mg/dL Total Bilirubin 0.5 0.2-1.0 mg/dL Aspartate Amino Transferase (AST) 52 H 13-40 U/L Alanine Aminotransferase (ALT) 57 H 7-40 U/L Alkaline Phosphatase 122 H 46-116 U/L B-Type Natriuretic Peptide 810.87 0-100 pg/mL Total Protein 6.5 5.7-8.2 g/dL Albumin 4.2 3.2-4.8 g/dL Assessment Shortness of breaths likely secondary to congestive heart failure Hyponatremia Elevated troponin Transaminitis Uncontrolled diabetes mellitus hemoglobin A1c 9.7 Chest x-ray shows pulmonary vascular congestion. Liver ultrasound completed, no acute abdominal pathology. Plan: Given negative clinical findings, negative liver ultrasound, and elevated troponins, transaminitis could be secondary to cardiac disease. Recommend echocardiogram. We will monitor the patient. Follow up with hepatitis panel. Continue diabetic and cardiac diet Plan discussed with patient in which all questions have been answered Case discussed with Dr. Machado Plan discussed with: Patient WERNER DELGADO RESIDENT Oct 09, 2024 16:01
[2024-10-09] MEDS: FUROSEMIDE 40 MG/4 ML VIAL IV SCH (16:12)
[2024-10-09 16:41] VITALS: BP 133/68; PULSE 96; RESP 16; TEMP 97.4; O2SAT 93
[2024-10-09 20:00] VITALS: PULSE 104; PULSE 93; RESP 18; O2SAT 98
[2024-10-09 21:00] VITALS: BP 118/69; PULSE 108; RESP 19; TEMP 98.4; O2SAT 96
--- NOTE | 2024-10-09 21:24 | DVHINCON2 ---
Date Seen: Oct 09, 2024 Referring Physician Lillian Reason for Consultation NSTEMI History of Present Illness This is an 84-year-old male with PMH of diabetes and HTN who presented to the ED with c/o shortness of breath. Patient has been having shortness of breath worsens with exertion for the last week. Denies any chest pain, palpitations, diaphoresis. Chest x-ray shows patchy area of consolidation in the right suggestive of pneumonia versus pulmonary edema. BNP 810. Troponins trending 767, 775, 735. Blood glucose 352, A1c 9.7. EKG reviewed and shows normal sinus rhythm at 90 beats per minute, lateral ST abnormality. Patient was admitted to the hospital. I am asked to consult on this patient. Past Medical History Diabetes HTN Past Surgical History Denies previous cardiac surgeries Family History: Diabetes mellitus G8 MOTHER Allergies: Coded Allergies: NO KNOWN ALLERGIES (Unverified , 01/21/24) Home Meds Active Scripts Promethazine-Dm (Promethazine Dm 6.25-15 mg/5Ml) 1 Anneliese Anneliese, 5 ML PO TID, #180 ML Prov:JOLANTA ALBARRAN 02/05/24 Amoxicillin Trihydrate (Amoxicillin) 875 Mg Tab, 1 TAB PO BID, #20 TAB Prov:JOLANTA ALBARRAN 02/05/24 Acetaminophen (Acetaminophen) 500 Mg Tab, 500 MG PO QIDPRN for 10 Days, #40 TAB Prov:MELINA FORTE DO 01/21/24 Reported Medications Simvastatin (Simvastatin) 20 Mg Tab, 1 TAB PO 10/09/24 Insulin Isophane & Reg (Human) (Humulin 70/30 (70-30) 100 Unit/ml) 1 Units/0.01 Ml Inj, 15 UNITS SC BID, INJ 10/09/24 Current Medications Current Medications Medications (Trade) Dose Ordered Sig/Rosa Route PRN Reason Start Time Stop Time Status Last Admin Furosemide (Lasix Injection) 40 mg BIDD IV 10/09/24 18:00 10/09/24 16:12 Diagnostic Test (Pha) (Accu-Chek Comfort Curve T) 1 strip ACHS 10/09/24 07:00 10/09/24 16:12 Insulin Human Regular (InsuLIN R) ACHS SC 10/09/24 07:00 10/09/24 08:26 Dextrose 50 ml UD PRN IV Blood Sugar LESS THAN 60 10/09/24 07:00 Aspirin 81 mg DAILY PO 10/09/24 10:00 10/09/24 10:21 Atorvastatin Calcium (Lipitor) 40 mg HS PO 10/09/24 22:00 Morphine Sulfate 2 mg Q30MP PRN IV FOR CHEST PAIN 10/09/24 07:00 Acetaminophen (Tylenol Tablet) 650 mg Q6HP PRN PO MILD PAIN (1-3 PAIN SCALE) 10/09/24 07:00 Nitroglycerin (Ntrostat Sublingual) 0.4 mg Q5MINP PRN SL FOR CHEST PAIN 10/09/24 07:00 Ondansetron HCl (Zofran) 4 mg Q4HP PRN IV NAUSEA / VOMITING 10/09/24 07:00 Nitroglycerin (Ntrostat Sublingual) 0.4 mg Q5MINP PRN SL FOR CHEST PAIN 10/09/24 07:00 10/09/24 07:28 DC Morphine Sulfate 2 mg Q30M PRN IV FOR CHEST PAIN 10/09/24 07:00 10/09/24 07:28 DC Review of Systems Constitutional: No: Fever, Chills, Sweats, Weakness, Malaise, Other Eyes: No: Pain, Vision change, Conjunctivae inflammation, Eyelid inflammation, Other, Redness ENT: No: Ear pain, Ear discharge, Nose pain, Nose discharge, Nose congestion, Mouth pain, Mouth swelling, Throat pain, Throat swelling, Other Respiratory: No: Cough, Dry, , Wheezing, Hemoptysis, Pleuritic Pain, Sputum, Wheezing, Other positive: Shortness of breath, SOB with exertion Cardiovascular: ; No: Chest Pain Palpitations, Orthopnea, Paroxysmal Noc. Dyspnea, Edema, Lt Headedness, Other Gastrointestinal: No: Nausea, Vomiting, Abdominal Pain, Diarrhea, Constipation, Melena, Hematochezia, Other Genitourinary: No Dysuria, No Frequency, No Incontinence, No Hematuria, No Retention, No Other Musculoskeletal: neck pain; No: other, shoulder pain, arm pain, back pain, hand pain, leg pain, foot pain Skin: No: Rash, Lesions, Jaundice, Bruising, Other Neurological: Other (Dizziness, headache.); No: Weakness, Numbness, Incoord ination, Change in speech, Confusion, Seizures Vital Signs Vital Signs Date Time Temp Pulse Resp B/P (MAP) Pulse Ox O2 Delivery O2 Flow Rate FiO2 10/09/24 16:12 133/68 10/09/24 14:07 97.9 88 16 96 97.9 10/09/24 13:24 Room Air* 0 21 Physical Exam GENERAL: Awake, alert, oriented. LUNGS: Diminished breath sounds. CARDIOVASCULAR: Heart sounds are good. ABDOMEN: Soft. Labs/Diagnostic Data Labs Test 10/09/24 16:04 10/09/24 13:12 10/09/24 04:00 10/09/24 03:41 Range/Units POC Glucose 107 H 70-106 mg/dl Plasma/Serum Blood Alcohol < 3.0 <10 mg/dL Troponin I High Sensitivity 735 *H </=54 ng/L Triglycerides Level 79 < 150 mg/dL Cholesterol Level 126 < 200 mg/dL LDL Cholesterol 51 < 100 mg/dL HDL Cholesterol 61 H 40-59 mg/dL Urine Color Light-yellow Yellow Urine Clarity Clear Clear Urine pH 5.5 5.0-9.0 Urine Specific [place] 1.028 1.001-1.035 Urine Protein Trace H Negative Urine Ketones Trace Negative Urine Blood Negative Negative /uL Urine Nitrite Negative Negative Urine Bilirubin Negative Negative Urine Urobilinogen Normal Negative mg/dL Urine Leukocyte Esterase Negative Negative /uL Urine RBC <1 0 - 3 /hpf Urine Microscopic WBC < 1 0-3 /HPF Urine Squamous Epithelial Cells None seen <5 /hpf Urine Bacteria None seen None Seen /hpf Urine Glucose 4+ H Normal mg/dL Urine Opiates Screen Neg NEGATIVE Urine Fentanyl Screen Neg NEGATIVE Urine Barbiturates Screen Neg NEGATIVE Urine Phencyclidine Screen Neg NEGATIVE Urine Amphetamines Screen Neg NEGATIVE Urine Benzodiazepines Screen Neg NEGATIVE Urine Cocaine Screen Neg NEGATIVE Urine Cannabinoids Screen Neg NEGATIVE Test 10/09/24 02:21 10/09/24 01:18 Range/Units Thyroid Stimulating Hormone (TSH) 1.49 0.55-4.78 uIU/mL White Blood Count 5.3 4.4-10.8 10^3/uL Red Blood Count 4.19 L 4.5-5.90 10^6/uL Hemoglobin 13.0 L 13.5-17.5 g/dL Hematocrit 37.4 L 41.0-53.0 % Mean Corpuscular Volume 89.2 80.0-100.0 fL Mean Corpuscular Hemoglobin 31.0 28.0-32.0 pg Mean Corpuscular Hemoglobin Concent 34.8 32.0-36.0 g/dL Red Cell Distribution Width 13.7 11.8-14.3 % Platelet Count 145 140-450 10^3/uL Mean Platelet Volume 9.5 6.9-10.8 fL Neutrophils (%) (Auto) 64.8 37.0-80.0 % Lymphocytes (%) (Auto) 26.6 10.0-50.0 % Monocytes (%) (Auto) 7.3 0.0-12.0 % Eosinophils (%) (Auto) 1.0 0.0-7.0 % Basophils (%) (Auto) 0.3 0.0-2.0 % Neutrophils # (Auto) 3.4 1.6-8.6 10 ^3/uL Lymphocytes # (Auto) 1.4 0.4-5.4 10 ^3/uL Monocytes # (Auto) 0.4 0-1.3 10 ^3/uL Eosinophils # (Auto) 0.1 0-0.8 10 ^3/uL Basophils # (Auto) 0 0-0.2 10 ^3/uL Nucleated Red Blood Cells 0.1 % Sodium Level 134 L 136-145 mmol/L Potassium Level 4.4 3.5-5.1 mmol/L Chloride Level 101 98-107 mmol/L Carbon Dioxide Level 26 20-31 mmol/L Anion Gap 7 5-15 Blood Urea Nitrogen 19 9-23 mg/dL Creatinine 1.12 0.700-1.30 mg/dL Glomerular Filtration Rate Calc 65 >90 mL/min BUN/Creatinine Ratio 17.0 10.0-20.0 Serum Glucose 352 H 74-106 mg/dL Hemoglobin A1c 9.7 H <5.7 % A1C Calcium Level 9.6 8.7-10.4 mg/dL Total Bilirubin 0.5 0.2-1.0 mg/dL Aspartate Amino Transferase (AST) 52 H 13-40 U/L Alanine Aminotransferase (ALT) 57 H 7-40 U/L Alkaline Phosphatase 122 H 46-116 U/L B-Type Natriuretic Peptide 810.87 0-100 pg/mL Total Protein 6.5 5.7-8.2 g/dL Albumin 4.2 3.2-4.8 g/dL Assessment NSTEMI. Acute CHF. Pneumonia. HTN. Uncontrolled diabetes. Plan/Recommendation I agree with your ongoing assessment and care of plan. Patient has been seen by Victor Manuel Aragon NP on my behalf, him and I discussed the plan with the patient. Telemetry reviewed. Echocardiogram. Continue on aspirin and statin. Plan for coronary angiogram Friday10/11/2024. Diuresis with Lasix 40 mg IV twice daily. On insulin sliding scale. Management per primary team. Continue trending BP. Patient will need ischemic workup stress test versus angiogram. Additional plan as per the hospital course. Plan discussed with: Patient NYHA Physical activity limitations: Class3(Marked) ordinary Date of Service: Oct 09, 2024 Billing Provider: LU CHI MD Cardiology Common Codes: 81173-[id number] INP/OBS CARE (High), [id number] CARE 30-74 MIN LU CHI MD Oct 09, 2024 16:34
--- NOTE | 2024-10-09 22:06 | DVHPN2 ---
Assessment/Plan Assessment/Plan Progress note 84 yo M admitted for LE swelling. Physical exam Alert oriented x3 JVD midneck upright B/l crackles S1 S2 RRR Abdomen soft nontender B/l LE edema Labs EKG imaging reviewed Assessment and plan Acute heart failure Heart failure with reduced ejection fraction Type 2 MA demand ischemia Transaminitis, not clinically significant hypervolemic hyponatremia Pending echo read, looks like reduced EF Cardio consult for ischemic workup Start GDMT Lasix for diuresis strict I&O daily weights diet cardiac dvt ppx lovenox Plan discussed with: Patient Date of Service: Oct 09, 2024 Billing Provider: ART ENGLAND MD Common Visit Codes: [id number] INP/OBS CARE(HIGH) ART ENGLAND MD Oct 09, 2024 22:06
[2024-10-09] MEDS: ATORVASTATIN 20 MG TAB PO SCH (22:40)
[2024-10-10] VITALS (9 sets, daily range): BP systolic 101–127; BP diastolic 52–71; PULSE 62–102; RESP 18; TEMP 97.8–98.5; O2SAT 92–100
--- NOTE | 2024-10-10 01:02 | DVHSR ---
APPROVED REPORT EXAM: Two-dimensional and M-mode echocardiogram with Doppler and color Doppler. Blood Pressure: 141/76 mmHg INDICATION SOB RISK FACTORS Height: 5'8, Weight: 143 DIMENSIONS LVDd5.3 (3.8-5.7cm)LA (2D)3.8 (1.9-4.0cm)Aortic Root3.3 (2.0-3.7cm) LVDs5.0 (2.5-4.0cm)LA (MM) (1.9-4.0cm)Aortic Cusp Exc1.1 (1.5-2.0cm) EF (%) 15.0 (55-70%)Rt. Atrium3.1 (1.9-4.0cm)Asc. Aorta3.1 cm IVSd0.6 (0.7-1.1cm)RV (D)3.2 (1.8-2.4cm) PWd0.7 (0.7-1.1cm) Mitral Valve MitralMitral Stenosis E wave1.22m/sMV Mean GR.mmHg A wave0.90m/sMV Peak GR.94mmHg E/A ratio1.42D MVAcm2 DECEL [id number] 1/2 Timems Aortic Valve Aortic ValveAortic Stenosis V10.59m/Kiersten Mean GR.2mmHg V20.87m/Kiersten Peak GR.3mmHg LVOT Diameter1.7 (1.8-2.4cm)Doppler AVA1.54cm2 Pulmonic Valve V20.58m/s Tricuspid Valve TR Velocity3.30m/s [id number] Conclusion END STAGE DILATED CARDIOMYOPATHY LV EJECTION FRACTION IS ONLY 15% NORMAL VALVES NO EFFUSION MODERATE DEGREE PULMONARY HYPERTENSION RVSP IS 50 MM OF HG AND IS MODERATELY HIGH
[2024-10-10 05:59] LABS: Basophils # (auto) 0 10 ^3/uL (0-0.2); Basophils % (auto) 0.4 % (0.0-2.0); Eosinophils # (auto) 0 10 ^3/uL (0-0.8); Eosinophils % (auto) 0.7 % (0.0-7.0); Hematocrit 42.6 % (41.0-53.0); Hemoglobin 14.9 g/dL (13.5-17.5); Lymphocytes # (auto) 1.4 10 ^3/uL (0.4-5.4); Lymphocytes % (auto) 19.8 % (10.0-50.0); Mean Corpuscular Hemoglobin 31.2 pg (28.0-32.0); Mean Corpuscular Hgb Conc. 34.9 g/dL (32.0-36.0); Mean Corpuscular Volume 89.3 fL (80.0-100.0); Monocytes # (auto) 0.6 10 ^3/uL (0-1.3); Monocytes % (auto) 9.3 % (0.0-12.0); Neutrophils # (auto) 4.8 10 ^3/uL (1.6-8.6); Neutrophils % (auto) 69.8 % (37.0-80.0); Platelet Count (auto) 194 10^3/uL (140-450); Red Blood Cells 4.77 10^6/uL (4.5-5.90); Red Cell Distribution Width 13.8 % (11.8-14.3); White Blood Cell 6.8 10^3/uL (4.4-10.8)
[2024-10-10 06:14] LABS: INR 1.02 (0.9-1.15); Partial Thromboplastin Time 29.1 SEC (24.5-34.5); Prothrombin Time 10.8 sec (9.3-11.8)
[2024-10-10 06:15] LABS: Alkaline Phosphatase 102 U/L (46-116); Anion Gap 12 (5-15); BUN/Creatinine Ratio 16.5 (10.0-20.0); Blood Urea Nitrogen 17 mg/dL (9-23); Calcium 10.3 mg/dL (8.7-10.4); Carbon Dioxide 27 mmol/L (20-31); Chloride 100 mmol/L (98-107); Glucose 94 mg/dL (74-106); Magnesium 1.8 mg/dL (1.6-2.6); Sodium 139 mmol/L (136-145)
[2024-10-10 06:17] LABS: Albumin 4.8 g/dL (3.2-4.8); Aspartate Aminotransferase 28 U/L (13-40); Bilirubin, Total 0.8 mg/dL (0.2-1.0); Total Protein 7.5 g/dL (5.7-8.2)
[2024-10-10 06:18] LABS: Alanine Aminotransferase 48 U/L (7-40); Potassium 3.3 mmol/L (3.5-5.1)
--- NOTE | 2024-10-10 07:20 | ECG ---
[facility] Test Date: 2024-10-09 Test Time: 03:04:15 Pat Name: CONNIE BRIGGS Department: ER Room: 0235T A Gender: M Supervisor [facility]: ER : 1940 Requested By: SARAH LYNN Order Number: [id number] Reading MD: George Powell Measurements Intervals Clark Rate: 98 P: 54 ME: 187 QRS: 94 QRSD: 126 T: -77 QT: 338 QTc: 432 Interpretive Statements Sinus rhythm Nonspecific intraventricular conduction delay Probable inferior infarct, age indeterminate Lateral leads are also involved Electronically Signed On 10-10-2024 14:44:46 PST by George Powell Please click the below link to view image of tracing.
[2024-10-10] MEDS: EMPAGLIFLOZIN 10 MG TAB PO SCH (07:26)
[2024-10-10] MEDS: CARVEDILOL 3.125 MG TAB PO SCH (07:27)
--- NOTE | 2024-10-10 10:11 | DVHPN2 ---
Consult Progress Note Subjective Patient reports: No new complaints Review of Systems: CVS:Normal (Denies chest pain), RESPIRATORY:Abnormal (Breathing feels better) Objective vital signs Vital Sign Date Time Temp Pulse Resp B/P (MAP) Pulse Ox O2 Delivery O2 Flow Rate FiO2 10/10/24 08:00 85 18 97 Room Air* 0 21 10/10/24 07:27 130/68 10/10/24 05:00 97.8 97.8 Total Intake and Output 10/09/24 10/09/24 10/10/24 15:00 23:00 07:00 Intake Total 250 ml 0 ml Balance 250 ml 0 ml medications Current Medications Medications Dose Ordered Sig/Rosa Route Start Time Stop Time Status Last Admin Dose Admin Furosemide 40 mg BIDD IV 10/09/24 18:00 10/10/24 05:33 40 MG Diagnostic Test (Pha) 1 strip ACHS 10/09/24 07:00 10/10/24 05:38 1 STRIP Insulin Human Regular ACHS SC 10/09/24 07:00 10/09/24 22:00 10 UNITS Dextrose 50 ml UD PRN IV 10/09/24 07:00 Aspirin 81 mg DAILY PO 10/09/24 10:00 10/10/24 07:26 81 MG Atorvastatin Calcium 40 mg HS PO 10/09/24 22:00 10/09/24 22:40 40 MG Acetaminophen 650 mg Q6HP PRN PO 10/09/24 07:00 Empaglifozin 10 mg DAILY PO 10/10/24 10:00 10/10/24 07:26 10 MG Carvedilol 3.125 mg Q12HR PO 10/10/24 10:00 10/10/24 07:27 3.125 MG Sacubitril/ Valsartan 1 tab BID PO 10/10/24 10:00 Examination: LUNGS:Normal (On room air), CVS:Normal (Telemetry consistent with sinus rhythm at 94 beats per minute) laboratory and microbiology Laboratory Tests 10/10/24 05:14 Test 10/10/24 05:14 Range/Units Serum Glucose 94 # 74-106 mg/dL Problem List/Assessment/Plan Problem List/Assessment/Plan Assessment NSTEMI Acute CHF HTN Uncontrolled diabetes Plan/Recommendation * NSTEMI - likely type 2. Denies chest pain. EKG with lateral ST abnormalities. Follow up echo. Continue on aspirin and statin. Plan for coronary angiogram Friday10/11/2024. * Acute CHF - elevated BNP. CXR with pulmonary edema. Diuresis with Lasix 40 mg IV twice daily. * Uncontrolled diabetes - A1c 9.7. On insulin sliding scale. Management per primary team. * HTN - continue trending * Cardiomyopathy EF 15%, continue on Coreg, Entresto, Jardiance. Being diuresed with Lasix 40 mg IV twice daily. Case Discussed with Dr Valero. Follow-up echo shows new onset CHF with severely reduced EF of 15%. Dilated cardiomyopathy. Moderate degree of pulmonary hypertension with RVSP of 50 mmHg. Plan for coronary angiogram in a.m.. NPO after midnight. Continue diuresis with Lasix. We will initiate GDMT as tolerated. Critical care, time spent: 40 minutes This medical document was created using an electronic medical record system with voice recognition software and computerized dictation system. Although this document has been carefully reviewed, there might still be some phonetic and typographical errors. Occasional wrong-word or ``sound-alike substitutions may have occurred due to the inherent limitations of voice recognition software. These areas are purely typographical due to imperfections of the software programs and do not reflect any compromise in the patient's medical care. Please read the chart carefully and recognize, using context, where these substitutions have occurred. Thank you for allowing me to participate in the management of this patient. The treatment plan was discussed with and agreed upon by patient/family including requesting consultants and ordering of imaging/procedures. Plan discussed with: Patient Date of Service: Oct 10, 2024 Billing Provider: DUSTIN FLANAGAN Common Visit Codes: [id number] INP/OBS CARE(HIGH), [id number] CARE 30-74 MIN DUSTIN FLANAGAN Oct 10, 2024 10:11
[2024-10-10] MEDS: SACUBITRIL-VALSARTAN 24mg/26mg TAB PO SCH (10:53)
[2024-10-10] MEDS: POTASSIUM EFFERVESENT TAB 25 MEQ PO ONE (10:54)
--- NOTE | 2024-10-10 12:45 | DVHPN2 ---
Assessment/Plan Assessment/Plan Progress note 84 yo M admitted for LE swelling. seen today during rounds, improving. new onset HF, plan for cath tomorrow Physical exam Alert oriented x3 JVD midneck upright B/l crackles S1 S2 RRR Abdomen soft nontender B/l LE edema Labs EKG imaging reviewed Assessment and plan Acute heart failure Heart failure with reduced ejection fraction EF 15% Type 2 GA demand ischemia Transaminitis, not clinically significant hypervolemic hyponatremia Pending echo read, looks like reduced EF Cardio consult for ischemic workup plan for cath friday Start GDMT, titrate up as tolerated Lasix for diuresis strict I&O daily weights diet cardiac dvt ppx lovenox Plan discussed with: Patient My Orders Orders - ART ENGLAND MD Procedure Category Date Status Time Strict I&O ED NURSING 10/09/24 Transmitted Daily Weight ERI 10/09/24 In Process 22:02 Empagliflozin PHA 10/10/24 In Process (Jardiance) 10:00 Carvedilol Tablet PHA 10/10/24 In Process (Coreg Tablet) 10:00 Sacubitril-Valsartan PHA 10/10/24 In Process (Entresto 24-26 Mg 10:00 Date of Service: Oct 10, 2024 Billing Provider: ART ENGLAND MD Common Visit Codes: [id number] INP/OBS CARE(HIGH) ART ENGLAND MD Oct 10, 2024 12:45
--- NOTE | 2024-10-10 20:05 | DVHPN2 ---
Progress Note - Dictate Date Seen: Oct 10, 2024 Medical Necessity Reason Pt with a Central, PICC or Fol: No Subjective No new complaints Patient seen at bedside Resting comfortably No nausea or vomiting abdominal pain or GI bleeding Liver enzymes are trending down vital signs Vital Sign Date Time Temp Pulse Resp B/P (MAP) Pulse Ox O2 Delivery O2 Flow Rate FiO2 10/10/24 16:54 98.5 79 18 103/58 (73) 96 98.5 10/10/24 08:00 Room Air* 0 21 Total Intake and Output 10/09/24 10/09/24 10/10/24 15:00 23:00 07:00 Intake Total 250 ml 0 ml Balance 250 ml 0 ml medications Current Medications Medications Dose Ordered Sig/Rosa Route Start Time Stop Time Status Last Admin Dose Admin Furosemide 40 mg BIDD IV 10/09/24 18:00 10/10/24 16:24 40 MG Diagnostic Test (Pha) 1 strip ACHS 10/09/24 07:00 10/10/24 16:12 1 STRIP Insulin Human Regular ACHS SC 10/09/24 07:00 10/10/24 16:23 4 UNITS Dextrose 50 ml UD PRN IV 10/09/24 07:00 Aspirin 81 mg DAILY PO 10/09/24 10:00 10/10/24 07:26 81 MG Atorvastatin Calcium 40 mg HS PO 10/09/24 22:00 10/09/24 22:40 40 MG Acetaminophen 650 mg Q6HP PRN PO 10/09/24 07:00 Empaglifozin 10 mg DAILY PO 10/10/24 10:00 10/10/24 07:26 10 MG Carvedilol 3.125 mg Q12HR PO 10/10/24 10:00 10/10/24 07:27 3.125 MG Sacubitril/ Valsartan 1 tab BID PO 10/10/24 10:00 10/10/24 10:53 1 TAB objective Patient lying in bed, in no acute distress General: Well-built, afebrile, palor, mucosae are moist Cardiovascular: Regular S1 and S2. No murmurs, gallops or rubs. No JVD elevation. No pedal edema Respiratory: Normal B/L air entry on room air. Clear lung sounds on auscultation Abdomen: Soft, nontender, nondistended, normoactive bowel sounds, no rebound tenderness, no organomegaly, no masses Genitourinary: Deferred MSK/skin: Mobilizes 4 limbs. Skin is dry and warm Neurological: No motor, no sensitive deficits, normal speech. Pupils are isocoric and reactive. Psych/Mental Status: A/Ox3 laboratory and microbiology Laboratory Tests 10/10/24 05:14 Test 10/10/24 05:14 Range/Units Serum Glucose 94 # 74-106 mg/dL Problems(with codes): (1) Elevated troponin (2) Acute coronary syndrome (3) Transaminitis Prognosis Plan I suspect the elevation in liver enzymes is related to his coronary syndrome and elevated troponins Liver enzymes are trending down Check liver ultrasound and hepatitis panel Supportive care Outpatient follow up with GI Services upon discharge Plan discussed with: Patient BRAD KEYS MD Oct 10, 2024 20:05
--- NOTE | 2024-10-10 22:34 | DVHPN2 ---
Consult Progress Note Subjective Patient reports: No new complaints Other Systems: Patient was seen and evaluated in follow up. Patient denies any chest pain or SOB. Echo shows new onset CHF with severely reduced EF of 15%. Dilated cardiomyopathy. Moderate degree of pulmonary hypertension with RVSP of 50 mmHg. Plan for coronary angiogram in a.m. Risks and benefits were discussed with the patient. K 3.3, GLUC 225. Telemetry reviewed. Objective vital signs Vital Sign Date Time Temp Pulse Resp B/P (MAP) Pulse Ox O2 Delivery O2 Flow Rate FiO2 10/10/24 16:24 106/55 10/10/24 16:24 86 10/10/24 13:00 98.2 18 100 98.2 10/10/24 08:00 Room Air* 0 21 Total Intake and Output 10/09/24 10/09/24 10/10/24 15:00 23:00 07:00 Intake Total 250 ml 0 ml Balance 250 ml 0 ml medications Current Medications Medications Dose Ordered Sig/Rosa Route Start Time Stop Time Status Last Admin Dose Admin Furosemide 40 mg BIDD IV 10/09/24 18:00 10/10/24 16:24 40 MG Diagnostic Test (Pha) 1 strip ACHS 10/09/24 07:00 10/10/24 16:12 1 STRIP Insulin Human Regular ACHS SC 10/09/24 07:00 10/10/24 16:23 4 UNITS Dextrose 50 ml UD PRN IV 10/09/24 07:00 Aspirin 81 mg DAILY PO 10/09/24 10:00 10/10/24 07:26 81 MG Atorvastatin Calcium 40 mg HS PO 10/09/24 22:00 10/09/24 22:40 40 MG Acetaminophen 650 mg Q6HP PRN PO 10/09/24 07:00 Empaglifozin 10 mg DAILY PO 10/10/24 10:00 10/10/24 07:26 10 MG Carvedilol 3.125 mg Q12HR PO 10/10/24 10:00 10/10/24 07:27 3.125 MG Sacubitril/ Valsartan 1 tab BID PO 10/10/24 10:00 10/10/24 10:53 1 TAB Examination: GENERAL:Normal, HEENT:Normal, NECK:Normal, LUNGS:Normal, CVS:Normal, ABDOMEN:Normal, SKIN:Normal laboratory and microbiology Laboratory Tests 10/10/24 05:14 Test 10/10/24 05:14 Range/Units Serum Glucose 94 # 74-106 mg/dL Problem List/Assessment/Plan Problem List/Assessment/Plan NSTEMI. Acute CHF. Pneumonia. HTN. Uncontrolled diabetes. Dilated cardiomyopathy. Moderate degree of pulmonary hypertension Plan/Recommendation Continued all current supportive medical care. Patient has been seen by Victor Manuel Aragon LABELING SPECIALIST on my behalf, him and I discussed the plan with the patient. Echo shows new onset CHF with severely reduced EF of 15%. Dilated cardiomyopathy. Moderate degree of pulmonary hypertension with RVSP of 50 mmHg. Plan for coronary angiogram in a.m. NPO after midnight. Continue diuresis with Lasix. We will initiate GDMT as tolerated. Additional plan as per the hospital course. Plan discussed with: Patient Date of Service: Oct 10, 2024 Billing Provider: LU CHI MD Cardiology Common Codes: [id number] [facility] LU CHI MD Oct 10, 2024 16:32
[2024-10-11] VITALS (13 sets, daily range): BP systolic 86–116; BP diastolic 49–63; PULSE 80–94; RESP 12–18; TEMP 97.8–98.2; O2SAT 94–100
[2024-10-11 08:03] LABS: Basophils # (auto) 0 10 ^3/uL (0-0.2); Basophils % (auto) 0.4 % (0.0-2.0); Eosinophils # (auto) 0.1 10 ^3/uL (0-0.8); Eosinophils % (auto) 1.2 % (0.0-7.0); Hematocrit 41.3 % (41.0-53.0); Hemoglobin 14.3 g/dL (13.5-17.5); Lymphocytes # (auto) 1.4 10 ^3/uL (0.4-5.4); Lymphocytes % (auto) 30.5 % (10.0-50.0); Mean Corpuscular Hemoglobin 30.6 pg (28.0-32.0); Mean Corpuscular Hgb Conc. 34.7 g/dL (32.0-36.0); Mean Corpuscular Volume 88.3 fL (80.0-100.0); Monocytes # (auto) 0.5 10 ^3/uL (0-1.3); Monocytes % (auto) 11.4 % (0.0-12.0); Neutrophils # (auto) 2.6 10 ^3/uL (1.6-8.6); Neutrophils % (auto) 56.5 % (37.0-80.0); Nucleated Red Blood Cells % 0.1 %; Platelet Count (auto) 153 10^3/uL (140-450); Red Blood Cells 4.68 10^6/uL (4.5-5.90); Red Cell Distribution Width 13.7 % (11.8-14.3); White Blood Cell 4.7 10^3/uL (4.4-10.8)
[2024-10-11 08:15] LABS: Alanine Aminotransferase 27 U/L (7-40); Albumin 3.8 g/dL (3.2-4.8); Alkaline Phosphatase 80 U/L (46-116); Anion Gap 12 (5-15); BUN/Creatinine Ratio 19.2 (10.0-20.0); Bilirubin, Total 0.6 mg/dL (0.2-1.0); Calcium 9.7 mg/dL (8.7-10.4); Carbon Dioxide 27 mmol/L (20-31); Chloride 101 mmol/L (98-107); Magnesium 1.9 mg/dL (1.6-2.6); Sodium 140 mmol/L (136-145); Total Protein 5.9 g/dL (5.7-8.2)
[2024-10-11 08:17] LABS: Blood Urea Nitrogen 24 mg/dL (9-23); Glucose 146 mg/dL (74-106)
[2024-10-11 08:22] LABS: Aspartate Aminotransferase 14 U/L (13-40)
[2024-10-11 08:53] LABS: Hepatitis B Surface Antibody Positive (Negative)
[2024-10-11 09:02] LABS: Hepatitis B Surface Antigen Negative (Negative)
[2024-10-11 09:21] LABS: Hepatitis C Antibody Negative (Negative)
--- NOTE | 2024-10-11 12:10 | DVHPN2 ---
Assessment/Plan Assessment/Plan Progress note 84 yo M admitted for LE swelling. seen today during rounds, plan for cath today Physical exam Alert oriented x3 JVD midneck upright B/l crackles S1 S2 RRR Abdomen soft nontender B/l LE edema Labs EKG imaging reviewed Assessment and plan Acute heart failure Heart failure with reduced ejection fraction EF 15% Type 2 DE demand ischemia Transaminitis, not clinically significant hypervolemic hyponatremia Pending echo read, looks like reduced EF Cardio consult for ischemic workup plan for cath toiday Start GDMT, titrate up as tolerated Lasix for diuresis strict I&O daily weights diet cardiac dvt ppx lovenox Plan discussed with: Patient Date of Service: Oct 11, 2024 Billing Provider: ART ENGLAND MD Common Visit Codes: [id number] INP/OBS CARE(HIGH) ART ENGLAND MD Oct 11, 2024 12:10
[2024-10-11] MEDS: IODIXANOL 320MG/ML 100ML BTL IV ONE (16:20)
[2024-10-11] MEDS: VERAPAMIL 2.5MG/ML INJ 2ML VIAL IV ONE (16:30)
[2024-10-11] MEDS: LIDOCAINE 2%HCL (LOCAL ANESTH.) INJ 20ML MDV ONE (16:30)
[2024-10-11] MEDS: MIDAZOLAM HCL 2MG/2ML 2ml VIAL (1mg/ml) ONE (16:30)
[2024-10-11] MEDS: ANGIOMAX 250 MG VIAL IV ONE (16:30)
[2024-10-11] MEDS: SODIUM CHL 0.9% 0 ML ONE (16:30)
[2024-10-11] MEDS: fentaNYL CITRATE 100 MCG/2 ML VL ONE (16:30)
[2024-10-11] MEDS: PHENYLEPHRINE HCL 10 MG/ML VL ONE (16:54)
--- NOTE | 2024-10-11 17:00 | DVHPN2 ---
Progress Note Date Seen: Oct 11, 2024 Medical Necessity Reason Pt with a Central, PICC or Fol: No Subjective Patient reports: No new complaints Objective vital signs Vital Sign Date Time Temp Pulse Resp B/P (MAP) Pulse Ox O2 Delivery O2 Flow Rate FiO2 10/11/24 13:26 98.0 85 18 104/53 (70) 96 98.0 10/11/24 08:00 Room Air* 0 21 Total Intake and Output 10/10/24 10/10/24 10/11/24 14:59 22:59 06:59 Intake Total 400 ml 300 ml Output Total 500 ml 800 ml Balance -100 ml -500 ml medications Current Medications Medications Dose Ordered Sig/Rosa Route Start Time Stop Time Status Last Admin Dose Admin Furosemide 40 mg BIDD IV 10/09/24 18:00 10/10/24 16:24 40 MG Diagnostic Test (Pha) 1 strip ACHS 10/09/24 07:00 10/11/24 11:30 1 STRIP Insulin Human Regular ACHS SC 10/09/24 07:00 10/10/24 22:00 4 UNITS Dextrose 50 ml UD PRN IV 10/09/24 07:00 Aspirin 81 mg DAILY PO 10/09/24 10:00 10/10/24 07:26 81 MG Atorvastatin Calcium 40 mg HS PO 10/09/24 22:00 10/10/24 22:18 40 MG Acetaminophen 650 mg Q6HP PRN PO 10/09/24 07:00 Empaglifozin 10 mg DAILY PO 10/10/24 10:00 10/11/24 11:08 10 MG Carvedilol 3.125 mg Q12HR PO 10/10/24 10:00 10/10/24 22:18 3.125 MG Sacubitril/ Valsartan 1 tab BID PO 10/10/24 10:00 10/11/24 11:07 1 TAB Examination: GENERAL:Abnormal, HEENT:Abnormal, LUNGS:Abnormal, CVS:Abnormal, ABDOMEN:Abnormal laboratory and microbiology Laboratory Tests 10/11/24 07:36 Test 10/11/24 07:36 Range/Units Serum Glucose 146 H 74-106 mg/dL Problem List/Assessment/Plan Problem List/Assessment/Plan severe chf with LV dysfunction NYHA class III systolic HF ckd frailty cad severe nstemi LHC done extenive cad as expected noted given comorbidities, recommend medical therapy asa, statin, dapt, entresto and jardiance if BP allows poor prognosis , consider hospice Plan discussed with: Other (rn) My Orders My Orders Orders - CYNDY ABRAHAM MD Procedure Category Date Status Time Cl Left Heart Cath CL 10/11/24 Taken 07:40 Date of Service: Oct 11, 2024 Billing Provider: CYNDY ABRAHAM MD Common Visit Codes: NOT BILLABLE CYNDY ABRAAHM MD Oct 11, 2024 17:00
--- NOTE | 2024-10-11 17:03 | DVHOP2 ---
Operative Report Operative Report CARDIAC [facility] PROCEDURE REPORT [place], [place] Date of Service: 10/11/24 Phd Intern: Cyndy Abraham MD PROCEDURES PERFORMED: Coronary angiogram, left heart catheterization, conscious sedation administration and supervision, less than 15 minutes; fluoroscopy use and interpretation. PREOPERATIVE DIAGNOSES: NSTEMI POSTOP DIAGNOSIS: NSTEMI, end stage CHF DESCRIPTION OF PROCEDURE: The patient or appropriate family signed informed consent understanding the risks, benefits and alternatives of the procedure, they wished to proceed. The patient was brought to the cardiac maintenance shop laborer in n.p.o. state. The patient was prepped in a sterile fashion. Sedation was used per cardiac cath protocol. I administered 2 mL of 2% lidocaine to the right wrist. With an antegrade front wall puncture. I cannulated the right radial artery and placed a 6-[place] Glidesheath slender. Next, an intra-arterial spasmolytic was administered. Next, a - 5 [place] catheter and were used for coronary angiogram and LVEDP measurement and pressure pullback. At the completion of procedure, all guides and wires were removed, and there were no immediate complications. FINDINGS: RCA: Moderate vessel off the right sinus of Valsalva, there is ostial RCA MILL REPRESENTATIVE . L to R collaterals noted LEFT MAIN: Moderate size left main, it bifurcates into LAD and circumflex. distal LM has heavily calcific 60% stenosis, cannot rule out thrombus either CIRCUMFLEX: Moderate caliber vessel coming off the left main. 80% prox CX stenosis, Mid CX has 80% stenosis, very small vessel heavily diseased LAD: LAD is a moderate caliber vessel coming of the left main. 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 HF therapy asa, plavix, statin poor prognosis CYNDY ABRAHAM MD Oct 11, 2024 17:03
--- NOTE | 2024-10-11 20:15 | DVHPN2 ---
Progress Note - Dictate Date Seen: Oct 11, 2024 Medical Necessity Reason Pt with a Central, PICC or Fol: No Subjective No new complaints Patient underwent left heart catheterization this evening He has severe multivessel coronary artery disease, ICM, low ejection fraction Hepatitis panel is negative, liver enzymes have normalized vital signs Vital Sign Date Time Temp Pulse Resp B/P (MAP) Pulse Ox O2 Delivery O2 Flow Rate FiO2 10/11/24 18:20 86 17 97/54 (68) 100 10/11/24 13:26 98.0 98.0 10/11/24 08:00 Room Air* 0 21 Total Intake and Output 10/10/24 10/10/24 10/11/24 14:59 22:59 06:59 Intake Total 400 ml 300 ml Output Total 500 ml 800 ml Balance -100 ml -500 ml medications Current Medications Medications Dose Ordered Sig/Rosa Route Start Time Stop Time Status Last Admin Dose Admin Furosemide 40 mg BIDD IV 10/09/24 18:00 10/10/24 16:24 40 MG Diagnostic Test (Pha) 1 strip ACHS 10/09/24 07:00 10/11/24 11:30 1 STRIP Insulin Human Regular ACHS SC 10/09/24 07:00 10/10/24 22:00 4 UNITS Dextrose 50 ml UD PRN IV 10/09/24 07:00 Aspirin 81 mg DAILY PO 10/09/24 10:00 10/10/24 07:26 81 MG Atorvastatin Calcium 40 mg HS PO 10/09/24 22:00 10/10/24 22:18 40 MG Acetaminophen 650 mg Q6HP PRN PO 10/09/24 07:00 Empaglifozin 10 mg DAILY PO 10/10/24 10:00 10/11/24 11:08 10 MG Carvedilol 3.125 mg Q12HR PO 10/10/24 10:00 10/10/24 22:18 3.125 MG Sacubitril/ Valsartan 1 tab BID PO 10/10/24 10:00 10/11/24 11:07 1 TAB objective Patient lying in bed, in no acute distress General: Well-built, afebrile, palor, mucosae are moist Cardiovascular: Regular S1 and S2. No murmurs, gallops or rubs. No JVD elevation. No pedal edema Respiratory: Normal B/L air entry on room air. Clear lung sounds on auscultation Abdomen: Soft, nontender, nondistended, normoactive bowel sounds, no rebound tenderness, no organomegaly, no masses Genitourinary: Deferred MSK/skin: Mobilizes 4 limbs. Skin is dry and warm Neurological: No motor, no sensitive deficits, normal speech. Pupils are isocoric and reactive. Psych/Mental Status: A/Ox3 laboratory and microbiology Laboratory Tests 10/11/24 07:36 Test 10/11/24 07:36 Range/Units Serum Glucose 146 H 74-106 mg/dL Problems(with codes): (1) Elevated troponin (2) Acute coronary syndrome (3) Transaminitis Prognosis Plan Check liver ultrasound report Continue to monitor labs No further GI intervention at this time Medical management for severe coronary artery disease Prognosis guarded Plan discussed with: Patient BRAD KEYS MD Oct 11, 2024 20:15
[2024-10-12] VITALS (7 sets, daily range): BP systolic 95–118; BP diastolic 48–57; PULSE 70–82; RESP 11–16; TEMP 97.7–98.2; O2SAT 95–99
[2024-10-12 06:22] LABS: Chloride 102 mmol/L (98-107); Potassium 4.2 mmol/L (3.5-5.1); Sodium 138 mmol/L (136-145)
[2024-10-12 06:23] LABS: Anion Gap 10 (5-15); Carbon Dioxide 26 mmol/L (20-31)
[2024-10-12 06:24] LABS: Calcium 9.4 mg/dL (8.7-10.4)
[2024-10-12 06:29] LABS: BUN/Creatinine Ratio 23.6 (10.0-20.0)
[2024-10-12 06:30] LABS: Basophils # (auto) 0 10 ^3/uL (0-0.2); Basophils % (auto) 0.5 % (0.0-2.0); Eosinophils # (auto) 0.1 10 ^3/uL (0-0.8); Eosinophils % (auto) 1.8 % (0.0-7.0); Hematocrit 40.1 % (41.0-53.0); Hemoglobin 13.7 g/dL (13.5-17.5); Lymphocytes # (auto) 1.6 10 ^3/uL (0.4-5.4); Lymphocytes % (auto) 31.5 % (10.0-50.0); Mean Corpuscular Hemoglobin 30.5 pg (28.0-32.0); Mean Corpuscular Hgb Conc. 34.2 g/dL (32.0-36.0); Mean Corpuscular Volume 89.2 fL (80.0-100.0); Monocytes # (auto) 0.6 10 ^3/uL (0-1.3); Monocytes % (auto) 11.6 % (0.0-12.0); Neutrophils # (auto) 2.8 10 ^3/uL (1.6-8.6); Neutrophils % (auto) 54.6 % (37.0-80.0); Nucleated Red Blood Cells % 0.2 %; Platelet Count (auto) 170 10^3/uL (140-450); Red Cell Distribution Width 13.9 % (11.8-14.3); White Blood Cell 5.2 10^3/uL (4.4-10.8)
[2024-10-12 07:08] LABS: Blood Urea Nitrogen 26 mg/dL (9-23); Glucose 132 mg/dL (74-106)
--- NOTE | 2024-10-12 15:15 | DVHPN2 ---
Assessment/Plan Assessment/Plan Progress note 84 yo M admitted for LE swelling. seen today during rounds, s/p [facility], severe CAD with BAR STAFF RCA. Not candidate for intervention. Physical exam Alert oriented x3 JVD midneck upright B/l crackles S1 S2 RRR Abdomen soft nontender B/l LE edema Labs EKG imaging reviewed Assessment and plan Acute heart failure Heart failure with reduced ejection fraction EF 15% Type 2 ID demand ischemia Transaminitis, not clinically significant hypervolemic hyponatremia echo done s/p [facility] Start GDMT, titrate up as tolerated Lasix for diuresis strict I&O daily weights asa plavix lipitor diet cardiac dvt ppx lovenox Plan discussed with: Patient My Orders Orders - ART ENGLAND MD Procedure Category Date Status Time Clopidogrel Bisulfate [facility] 10/13/24 In Process (Plavix) 10:00 Date of Service: Oct 12, 2024 Billing Provider: ART ENLGAND MD Common Visit Codes: [id number] INP/OBS CARE(HIGH) ART ENGLAND MD Oct 12, 2024 15:15
[2024-10-12] MEDS: CLOPIDOGREL BISULFATE 75 MG TAB PO ONE (18:16)
--- NOTE | 2024-10-12 21:29 | DVHPN2 ---
Progress Note - Dictate Date Seen: Oct 12, 2024 Medical Necessity Reason Pt with a Central, PICC or Fol: No Subjective No new complaints Patient underwent left heart catheterization a couple of days ago He has severe multivessel coronary artery disease, ICM, low ejection fraction Hepatitis panel is negative, liver enzymes have normalized vital signs Vital Sign Date Time Temp Pulse Resp B/P (MAP) Pulse Ox O2 Delivery O2 Flow Rate FiO2 10/12/24 20:40 78 106/52 10/12/24 17:00 98.2 16 99 98.2 10/12/24 08:05 Room Air* 0 21 Total Intake and Output 10/11/24 10/11/24 10/12/24 15:00 23:00 07:00 Intake Total 0 ml 475 ml Output Total 0 ml Balance 0 ml 475 ml medications Current Medications Medications Dose Ordered Sig/Rosa Route Start Time Stop Time Status Last Admin Dose Admin Furosemide 40 mg BIDD IV 10/09/24 18:00 10/12/24 18:16 40 MG Diagnostic Test (Pha) 1 strip ACHS 10/09/24 07:00 10/12/24 20:41 1 STRIP Insulin Human Regular ACHS SC 10/09/24 07:00 10/12/24 20:54 8 UNITS Dextrose 50 ml UD PRN IV 10/09/24 07:00 Aspirin 81 mg DAILY PO 10/09/24 10:00 10/12/24 09:21 81 MG Atorvastatin Calcium 40 mg HS PO 10/09/24 22:00 10/12/24 20:40 40 MG Acetaminophen 650 mg Q6HP PRN PO 10/09/24 07:00 Empaglifozin 10 mg DAILY PO 10/10/24 10:00 10/12/24 09:20 10 MG Carvedilol 3.125 mg Q12HR PO 10/10/24 10:00 10/12/24 20:40 3.125 MG Sacubitril/ Valsartan 1 tab BID PO 10/10/24 10:00 10/12/24 20:39 1 TAB Clopidogrel Bisulfate 75 mg DAILY PO 10/13/24 10:00 objective Patient lying in bed, in no acute distress General: Well-built, afebrile, palor, mucosae are moist Cardiovascular: Regular S1 and S2. No murmurs, gallops or rubs. No JVD elevation. No pedal edema Respiratory: Normal B/L air entry on room air. Clear lung sounds on auscultation Abdomen: Soft, nontender, nondistended, normoactive bowel sounds, no rebound tenderness, no organomegaly, no masses Genitourinary: Deferred MSK/skin: Mobilizes 4 limbs. Skin is dry and warm Neurological: No motor, no sensitive deficits, normal speech. Pupils are isocoric and reactive. Psych/Mental Status: A/Ox3 laboratory and microbiology Laboratory Tests 10/12/24 05:41 Test 10/12/24 05:41 Range/Units Serum Glucose 132 H 74-106 mg/dL Problems(with codes): (1) CAD (coronary artery disease) (2) Elevated troponin (3) Acute coronary syndrome (4) Transaminitis (5) URI (upper respiratory infection) (6) Fall at home Prognosis PLAN Continue to monitor labs No further GI intervention at this time Medical management for severe coronary artery disease Prognosis guarded Dietary Evaluation Review Comments: 1. Pt's LDL is low, thus recommend a CCHO-60 and 2GNa cardiac diet. It may be feasible to d/c lipitor until updated lipid profile done. 2. encourage PO intake to meet at least 75% of his needs. Expected Outcomes/Goals: Controlled DM, improved appetite and improved lab values, possible gradul wt gains. Plan discussed with: Patient BRAD KEYS MD Oct 12, 2024 21:29
[2024-10-13 01:00] VITALS: BP 89/48; PULSE 85; RESP 17; TEMP 98.1; O2SAT 98
[2024-10-13 05:00] VITALS: BP 108/56; PULSE 80; RESP 17; TEMP 97.9; O2SAT 100
[2024-10-13 05:44] LABS: Potassium 4.6 mmol/L (3.5-5.1)
[2024-10-13 05:45] LABS: Anion Gap 8 (5-15); Calcium 10.1 mg/dL (8.7-10.4); Carbon Dioxide 28 mmol/L (20-31)
[2024-10-13 05:50] LABS: BUN/Creatinine Ratio 19.7 (10.0-20.0)
[2024-10-13 05:56] LABS: Blood Urea Nitrogen 27 mg/dL (9-23); Chloride 98 mmol/L (98-107); Glucose 128 mg/dL (74-106); Sodium 134 mmol/L (136-145)
[2024-10-13 08:00] VITALS: PULSE 80
[2024-10-13 08:30] VITALS: BP 102/55; PULSE 78; RESP 18; TEMP 98; O2SAT 95
[2024-10-13] MEDS: CLOPIDOGREL BISULFATE 75 MG TAB PO SCH (10:11)
[2024-10-13] MEDS ORDERED: ASPI-325 PO (11:47)
[2024-10-13] MEDS ORDERED: CLOP75TA70 PO (11:47)
[2024-10-13] MEDS ORDERED: ATOR20TA50 PO (11:47)
[2024-10-13] MEDS ORDERED: FURO20TA3 PO (11:47)
[2024-10-13] MEDS ORDERED: SACU1TAB PO (11:47)
[2024-10-13] MEDS ORDERED: CARV-214 PO (11:47)
[2024-10-13] MEDS ORDERED: EMPA1TAB PO (11:47)
--- NOTE | 2024-10-13 11:48 | DVHDS2 ---
Discharge Summary Date of Admission Oct 09, 2024 at 06:51 Date of Discharge: Oct 13, 2024 Labs/Diagnostic Data: Laboratory Results Test 10/13/24 11:21 10/13/24 05:17 10/12/24 05:41 10/11/24 07:36 POC Glucose 398 mg/dl (70-106) Sodium Level 134 mmol/L (136-145) Potassium Level 4.6 mmol/L (3.5-5.1) Chloride Level 98 mmol/L (98-107) Carbon Dioxide Level 28 mmol/L (20-31) Anion Gap 8 (5-15) Blood Urea Nitrogen 27 mg/dL (9-23) Creatinine 1.37 mg/dL (0.700-1.30) Glomerular Filtration Rate Calc 51 mL/min (>90) BUN/Creatinine Ratio 19.7 (10.0-20.0) Serum Glucose 128 mg/dL (74-106) Calcium Level 10.1 mg/dL (8.7-10.4) White Blood Count 5.2 10^3/uL (4.4-10.8) Red Blood Count 4.50 10^6/uL (4.5-5.90) Hemoglobin 13.7 g/dL (13.5-17.5) Hematocrit 40.1 % (41.0-53.0) Mean Corpuscular Volume 89.2 fL (80.0-100.0) Mean Corpuscular Hemoglobin 30.5 pg (28.0-32.0) Mean Corpuscular Hemoglobin Concent 34.2 g/dL (32.0-36.0) Red Cell Distribution Width 13.9 % (11.8-14.3) Platelet Count 170 10^3/uL (140-450) Mean Platelet Volume 9.4 fL (6.9-10.8) Neutrophils (%) (Auto) 54.6 % (37.0-80.0) Lymphocytes (%) (Auto) 31.5 % (10.0-50.0) Monocytes (%) (Auto) 11.6 % (0.0-12.0) Eosinophils (%) (Auto) 1.8 % (0.0-7.0) Basophils (%) (Auto) 0.5 % (0.0-2.0) Neutrophils # (Auto) 2.8 10 ^3/uL (1.6-8.6) Lymphocytes # (Auto) 1.6 10 ^3/uL (0.4-5.4) Monocytes # (Auto) 0.6 10 ^3/uL (0-1.3) Eosinophils # (Auto) 0.1 10 ^3/uL (0-0.8) Basophils # (Auto) 0 10 ^3/uL (0-0.2) Nucleated Red Blood Cells 0.2 % Magnesium Level 1.9 mg/dL (1.6-2.6) Total Bilirubin 0.6 mg/dL (0.2-1.0) Aspartate Amino Transferase (AST) 14 U/L (13-40) Alanine Aminotransferase (ALT) 27 U/L (7-40) Alkaline Phosphatase 80 U/L (46-116) Total Protein 5.9 g/dL (5.7-8.2) Albumin 3.8 g/dL (3.2-4.8) Test 10/10/24 05:14 10/09/24 13:12 10/09/24 04:00 10/09/24 03:41 Prothrombin Time 10.8 sec (9.3-11.8) Prothrombin Time INR 1.02 (0.9-1.15) Activated Partial Thromboplast Time 29.1 SEC (24.5-34.5) Plasma/Serum Blood Alcohol < 3.0 mg/dL (<10) Hepatitis B Surface Antigen Negative (Negative) Hepatitis B Surface Antibody Positive (Negative) Hepatitis C Antibody Negative (Negative) Troponin I High Sensitivity 735 ng/L (</=54) Triglycerides Level 79 mg/dL (< 150) Cholesterol Level 126 mg/dL (< 200) LDL Cholesterol 51 mg/dL (< 100) HDL Cholesterol 61 mg/dL (40-59) Urine Color Light-yellow (Yellow) Urine Clarity Clear (Clear) Urine pH 5.5 (5.0-9.0) Urine Specific [place] 1.028 (1.001-1.035) Urine Protein Trace (Negative) Urine Ketones Trace (Negative) Urine Blood Negative /uL (Negative) Urine Nitrite Negative (Negative) Urine Bilirubin Negative (Negative) Urine Urobilinogen Normal mg/dL (Negative) Urine Leukocyte Esterase Negative /uL (Negative) Urine RBC <1 /hpf (0 - 3) Urine Microscopic WBC < 1 /HPF (0-3) Urine Squamous Epithelial Cells None seen /hpf (<5) Urine Bacteria None seen /hpf (None Seen) Urine Glucose 4+ mg/dL (Normal) Urine Opiates Screen Neg (NEGATIVE) Urine Fentanyl Screen Neg (NEGATIVE) Urine Barbiturates Screen Neg (NEGATIVE) Urine Phencyclidine Screen Neg (NEGATIVE) Urine Amphetamines Screen Neg (NEGATIVE) Urine Benzodiazepines Screen Neg (NEGATIVE) Urine Cocaine Screen Neg (NEGATIVE) Urine Cannabinoids Screen Neg (NEGATIVE) Test 10/09/24 02:21 10/09/24 01:18 Thyroid Stimulating Hormone (TSH) 1.49 uIU/mL (0.55-4.78) Hemoglobin A1c 9.7 % A1C (<5.7) B-Type Natriuretic Peptide 810.87 pg/mL (0-100) Other Laboratory Tests 10/13/24 05:17 10/12/24 05:41 Brief Hx & Hospital Course: 84 yo M admitted for LE swelling. seen by cardiology, echo done, HFrEF 15%, patient received [facility] with severe CAD including B[employer] RCA. Patient is determined to be for medical management. STarted on GDMT, asa plavix and statin. Patient was diuresed with lasix, now stable. 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 Patient was counseled about treatment plan, medications, possible side effects, patientverbalized understanding. All questions were answered to the best of my ability. 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
[2024-10-13 12:15] VITALS: BP 106/55; PULSE 84; RESP 18; TEMP 97.9; O2SAT 95
[2024-10-13 13:23] VITALS: BP 106/55; PULSE 84; RESP 18; TEMP 97.9; O2SAT 95
== END 2024-10-13 16:11 | disposition home or self-care (01) | DRG 280 ==
LOC: ER 00:37 → TELE 06:51 → TELE-EAST 13:26 → OVERFLOW 10-12 15:02 → EAST 10-12 15:08 → OVERFLOW 10-13 12:50 → TELE-EAST 10-13 12:55
PROVIDERS: ADMIT Student in an Organized Health Care Education/Training Program; ATTEND Student in an Organized Health Care Education/Training Program
PROC: 4A023N7 Measurement of Cardiac Sampling and Pressure, Left Heart, Percutaneous Approach (ICD-10-PCS; principal; 2024-10-11)
PROC: B2111ZZ Fluoroscopy of Multiple Coronary Arteries using Low Osmolar Contrast (ICD-10-PCS; 2024-10-11)
DX: I21.4 Non-ST elevation (NSTEMI) myocardial infarction (principal); I50.23 Acute on chronic systolic (congestive) heart failure; J96.01 Acute respiratory failure with hypoxia; I13.0 Hypertensive heart and chronic kidney disease with heart failure and stage 1 through stage 4 chronic kidney disease, or unspecified chronic kidney disease; E87.1 Hypo-osmolality and hyponatremia; D69.6 Thrombocytopenia, unspecified; R74.01 Elevation of levels of liver transaminase levels; J06.9 Acute upper respiratory infection, unspecified; N18.9 Chronic kidney disease, unspecified; I25.10 Atherosclerotic heart disease of native coronary artery without angina pectoris; E11.22 Type 2 diabetes mellitus with diabetic chronic kidney disease; I27.20 Pulmonary hypertension, unspecified; I50.84 End stage heart failure; Z83.3 Family history of diabetes mellitus; Z79.4 Long term (current) use of insulin; Z79.899 Other long term (current) drug therapy; I25.5 Ischemic cardiomyopathy
CPT/HCPCS: 36415; 71045; 76705; 80048; 80053; 80061; 80307; 80320; 81001; 82962; 83036; 83735; 83880; 84443; 84484; 85025; 85610; 85730; 86706; 86803; 87340; 93005; 93306; 93458; 96372; 99152; G0378; J1815; J2250; Q9967

== ENCOUNTER → 2024-11-10 | Outpatient (CLI) | payer MEDICAID ==
[~2024-11-10] MED LIST changes: -ACET500T58 PO; -AMOX875T3 PO; +ASPI-325 PO; +ATOR20TA50 PO; +CARV-214 PO; +CLOP75TA70 PO; +EMPA1TAB PO; +FURO20TA3 PO; +INS7030I SC; -LISI10TA34 PO; -PROM1SOL4 PO; +SACU1TAB PO; -SIMV20TA20 PO
[2024-11-10 15:03] LABS: Basophils # (auto) 0 10 ^3/uL (0-0.2); Basophils % (auto) 0.8 % (0.0-2.0); Eosinophils # (auto) 0.1 10 ^3/uL (0-0.8); Eosinophils % (auto) 1.2 % (0.0-7.0); Hematocrit 44.3 % (41.0-53.0); Hemoglobin 14.7 g/dL (13.5-17.5); Lymphocytes # (auto) 1.2 10 ^3/uL (0.4-5.4); Lymphocytes % (auto) 27.8 % (10.0-50.0); Mean Corpuscular Hemoglobin 29.7 pg (28.0-32.0); Mean Corpuscular Hgb Conc. 33.3 g/dL (32.0-36.0); Mean Corpuscular Volume 89.1 fL (80.0-100.0); Monocytes # (auto) 0.3 10 ^3/uL (0-1.3); Monocytes % (auto) 6.3 % (0.0-12.0); Neutrophils # (auto) 2.7 10 ^3/uL (1.6-8.6); Neutrophils % (auto) 63.9 % (37.0-80.0); Nucleated Red Blood Cells % 0.2 %; Platelet Count (auto) 132 10^3/uL (140-450); Red Blood Cells 4.97 10^6/uL (4.5-5.90); Red Cell Distribution Width 13.3 % (11.8-14.3); White Blood Cell 4.2 10^3/uL (4.4-10.8)
[2024-11-10 15:33] LABS: Alanine Aminotransferase 16 U/L (7-40); Albumin 4.5 g/dL (3.2-4.8); Alkaline Phosphatase 76 U/L (46-116); Anion Gap 7 (5-15); Aspartate Aminotransferase 15 U/L (13-40); BUN/Creatinine Ratio 16.1 (10.0-20.0); Bilirubin, Total 0.6 mg/dL (0.2-1.0); Blood Urea Nitrogen 20 mg/dL (9-23); Carbon Dioxide 28 mmol/L (20-31); Chloride 105 mmol/L (98-107); Glucose 278 mg/dL (74-106); Potassium 4.8 mmol/L (3.5-5.1); Sodium 140 mmol/L (136-145)
== END | disposition home or self-care (01) ==
LOC: LAB 14:48
PROVIDERS: ATTEND Student in an Organized Health Care Education/Training Program
DX: I11.0 Hypertensive heart disease with heart failure (principal); E11.65 Type 2 diabetes mellitus with hyperglycemia; I50.9 Heart failure, unspecified
CPT/HCPCS: 36415; 80053; 83036; 83880; 84443; 85025

== ENCOUNTER → 2025-05-20 | Outpatient (CLI) | payer MEDICAID ==
[2025-05-20 11:14] LABS: Hematocrit 35.4 % (41.0-53.0); Hemoglobin 11.5 g/dL (13.5-17.5); Mean Corpuscular Hemoglobin 28.4 pg (28.0-32.0); Mean Corpuscular Volume 87.2 fL (80.0-100.0); Nucleated Red Blood Cells % 0.0 %
[2025-05-20 11:16] LABS: Urine Protein, UAD Negative (Negative)
[2025-05-20 12:14] LABS: Albumin 4.1 g/dL (3.2-4.8); Anion Gap 9 (5-15); BUN/Creatinine Ratio 33.1 (10.0-20.0); Bilirubin, Total 0.6 mg/dL (0.2-1.0); Calcium 9.2 mg/dL (8.7-10.4); Carbon Dioxide 30 mmol/L (20-31); Chloride 98 mmol/L (98-107); Potassium 3.9 mmol/L (3.5-5.1); Sodium 137 mmol/L (136-145); Total Protein 6.9 g/dL (5.7-8.2)
[2025-05-20 12:16] LABS: Alanine Aminotransferase 57 U/L (7-40); Alkaline Phosphatase 155 U/L (46-116); Blood Urea Nitrogen 39 mg/dL (9-23); Glucose 123 mg/dL (74-106)
== END | disposition home or self-care (01) ==
LOC: LAB 10:44
PROVIDERS: ATTEND Student in an Organized Health Care Education/Training Program
DX: I10 Essential (primary) hypertension (principal); E11.9 Type 2 diabetes mellitus without complications
CPT/HCPCS: 36415; 80053; 81001; 83036; 85025